=== PATIENT | female | born 1990 | race Two or more races ===

== ENCOUNTER → 2021-12-01 | Outpatient (CLI) | payer OTHER | END | disposition home or self-care (01) | LOC: LAB 10:30 | PROVIDERS: ATTEND Obstetrics & Gynecology | DX: Z34.80 Encounter for supervision of other normal pregnancy, unspecified trimester (principal) | CPT/HCPCS: 86850; 86870; 86900; 86901 ==

== ENCOUNTER → 2022-02-15 | Outpatient (CLI) | payer OTHER ==
[2022-02-15 07:34] LABS: Basophils # (auto) 0 10 ^3/uL (0-0.2); Basophils % (auto) 0.4 % (0.0-2.0); Eosinophils # (auto) 0.6 10 ^3/uL (0-0.8); Hematocrit 35.8 % (36.0-46.0); Hemoglobin 11.6 g/dL (12.2-16.2); Lymphocytes % (auto) 19.9 % (10.0-50.0); Mean Corpuscular Hemoglobin 27.9 pg (28.0-32.0); Mean Corpuscular Hgb Conc. 32.4 g/dL (32.0-36.0); Mean Corpuscular Volume 86.2 fL (80.0-100.0); Monocytes # (auto) 0.7 10 ^3/uL (0-1.3); Neutrophils # (auto) 6.6 10 ^3/uL (1.6-8.6); Neutrophils % (auto) 66.7 % (37.0-80.0); Red Blood Cells 4.16 10^6/uL (4.0-5.20); Red Cell Distribution Width 13.6 % (11.8-14.3); White Blood Cell 9.9 10^3/uL (4.4-10.8)
== END | disposition home or self-care (01) ==
LOC: LAB 06:58
PROVIDERS: ATTEND Obstetrics & Gynecology
DX: Z34.80 Encounter for supervision of other normal pregnancy, unspecified trimester (principal); O99.810 Abnormal glucose complicating pregnancy
CPT/HCPCS: 36415; 82951; 83036; 85025

== ENCOUNTER 2022-02-25 07:52 | Observation (INO) | payer OTHER ==
[2022-02-25] MEDS ORDERED: PREN-96 PO (13:02)
== END 2022-02-25 13:11 | disposition home or self-care (01) ==
LOC: LDRP 10:57
PROVIDERS: ADMIT Obstetrics & Gynecology; ATTEND Obstetrics & Gynecology
DX: O24.419 Gestational diabetes mellitus in pregnancy, unspecified control (principal); O26.893 Other specified pregnancy related conditions, third trimester; N89.8 Other specified noninflammatory disorders of vagina; Z3A.29 29 weeks gestation of pregnancy
CPT/HCPCS: 59025; 76818; 81002; 82962; G0378

== ENCOUNTER 2022-03-01 07:41 | Observation (INO) | payer OTHER ==
[~2022-03-01 07:41] MED LIST: PREN-96 PO
== END 2022-03-01 14:04 | disposition home or self-care (01) ==
LOC: LDRP 13:00 → UNDOADMOB 13:00 → LDRP 13:22 → UNDODISOB 14:04
PROVIDERS: ADMIT Obstetrics & Gynecology; ATTEND Obstetrics & Gynecology
DX: O24.419 Gestational diabetes mellitus in pregnancy, unspecified control (principal); Z3A.30 30 weeks gestation of pregnancy
CPT/HCPCS: 59025; 76818; 81002; 82948; 82962; 94760; G0378

== ENCOUNTER 2022-03-15 15:00 | Observation (INO) | payer OTHER ==
[~2022-03-15] VITALS: Ht 167.6 cm; Wt 103.4 kg
== END 2022-03-15 16:22 | disposition home or self-care (01) ==
LOC: UNDOADMOB 15:00 → LDRP 15:00 → UNDODISOB 16:22
PROVIDERS: ADMIT Obstetrics & Gynecology; ATTEND Obstetrics & Gynecology
DX: O24.419 Gestational diabetes mellitus in pregnancy, unspecified control (principal); Z3A.32 32 weeks gestation of pregnancy
CPT/HCPCS: 59025; 76818; 81002; 82948; 82962; 94760; G0378

== ENCOUNTER 2022-03-22 16:45 | Observation (INO) | payer OTHER | END 2022-03-25 12:10 | disposition home or self-care (01) | LOC: LDRP 03-25 09:03 → UNDOADMOB 03-25 09:03 → LDRP 03-25 12:00 → UNDODISOB 03-25 12:10 | PROVIDERS: ADMIT Obstetrics & Gynecology; ATTEND Obstetrics & Gynecology | DX: O24.419 Gestational diabetes mellitus in pregnancy, unspecified control (principal); Z3A.33 33 weeks gestation of pregnancy; Z87.891 Personal history of nicotine dependence | CPT/HCPCS: 59025; 76818; 81002; 94760; G0378 ==

== ENCOUNTER 2022-04-01 08:00 | Observation (INO) | payer OTHER | END 2022-04-01 09:22 | disposition home or self-care (01) | LOC: LDRP 08:00 | PROVIDERS: ADMIT Obstetrics & Gynecology; ATTEND Obstetrics & Gynecology | DX: O24.419 Gestational diabetes mellitus in pregnancy, unspecified control (principal); Z3A.34 34 weeks gestation of pregnancy | CPT/HCPCS: 59025; 76818; 81002; 82948; 82962; 94760; G0378 ==

== ENCOUNTER → 2022-04-05 | Outpatient (CLI) | payer OTHER ==
[~2022-04-05] MED LIST changes: +CETI10CA PO; +FLUT250M2 INH
[2022-04-05 09:34] LABS: Basophils # (auto) 0 10 ^3/uL (0-0.2); Eosinophils # (auto) 0.2 10 ^3/uL (0-0.8); Neutrophils # (auto) 4.7 10 ^3/uL (1.6-8.6); White Blood Cell 7.6 10^3/uL (4.4-10.8)
[2022-04-05 09:36] LABS: Basophils % (auto) 0.5 % (0.0-2.0); Eosinophils % (auto) 3.3 % (0.0-7.0); Hematocrit 36.8 % (36.0-46.0); Hemoglobin 11.4 g/dL (12.2-16.2); Lymphocytes # (auto) 1.9 10 ^3/uL (0.4-5.4); Lymphocytes % (auto) 25.3 % (10.0-50.0); Mean Corpuscular Hemoglobin 25.8 pg (28.0-32.0); Mean Corpuscular Volume 83.1 fL (80.0-100.0); Monocytes # (auto) 0.7 10 ^3/uL (0-1.3); Monocytes % (auto) 9.2 % (0.0-12.0); Neutrophils % (auto) 61.7 % (37.0-80.0); Red Blood Cells 4.43 10^6/uL (4.0-5.20); Red Cell Distribution Width 13.1 % (11.8-14.3)
[2022-04-05 09:57] LABS: Alcohol, Urine < 3.0 mg/dL (0-10); Amphetamine Screen, Urine NEGATIVE (NEGATIVE); Barbiturate Scree,Urine NEGATIVE (NEGATIVE); Benzodiazephine Screen, Urine NEGATIVE (NEGATIVE); Cannabinoid Screen, Urine NEGATIVE (NEGATIVE); Cocaine Screen, Urine NEGATIVE (NEGATIVE); Opiate Scree,Urine NEGATIVE (NEGATIVE); Phencyclidine Screen, Urine NEGATIVE (NEGATIVE)
[2022-04-06 06:15] LABS: RPR Non Reactive (Non Reactive)
== END | disposition home or self-care (01) ==
LOC: LAB 09:04
PROVIDERS: ATTEND Obstetrics & Gynecology
DX: Z34.80 Encounter for supervision of other normal pregnancy, unspecified trimester (principal); Z3A.00 Weeks of gestation of pregnancy not specified; Z11.3 Encounter for screening for infections with a predominantly sexual mode of transmission; Z72.51 High risk heterosexual behavior
CPT/HCPCS: 36415; 80307; 84112; 85025; 86592; 87340

== ENCOUNTER 2022-04-08 08:17 | Observation (INO) | payer OTHER ==
[~2022-04-08 08:17] MED LIST changes: -CETI10CA PO; -FLUT250M2 INH
[2022-04-08] MEDS ORDERED: FLUT250M2 INH (09:05)
== END 2022-04-08 09:33 | disposition home or self-care (01) ==
LOC: LDRP 08:17 → UNDOADMOB 08:17 → LDRP 08:31 → UNDODISOB 09:33
PROVIDERS: ADMIT Obstetrics & Gynecology; ATTEND Obstetrics & Gynecology
DX: O24.419 Gestational diabetes mellitus in pregnancy, unspecified control (principal); O26.893 Other specified pregnancy related conditions, third trimester; N89.8 Other specified noninflammatory disorders of vagina; Z3A.35 35 weeks gestation of pregnancy
CPT/HCPCS: 59025; 76818; 81002; 82948; 82962; 94760; G0378

== ENCOUNTER 2022-04-15 08:56 | Observation (INO) | payer OTHER ==
[~2022-04-15 08:56] MED LIST changes: +FLUT250M2 INH
== END 2022-04-15 11:04 | disposition home or self-care (01) ==
LOC: LDRP 08:56
PROVIDERS: ADMIT Obstetrics & Gynecology; ATTEND Obstetrics & Gynecology
DX: O24.419 Gestational diabetes mellitus in pregnancy, unspecified control (principal); Z3A.36 36 weeks gestation of pregnancy; Z79.899 Other long term (current) drug therapy
CPT/HCPCS: 59025; 76818; 81002; 82948; 82962; G0378

== ENCOUNTER 2022-04-20 07:44 | Observation (INO) | payer OTHER | END 2022-04-22 10:50 | disposition home or self-care (01) | LOC: LDRP 04-22 08:58 → UNDOADMOB 04-22 08:58 → LDRP 04-22 09:02 → UNDODISOB 04-22 10:50 | PROVIDERS: ADMIT Obstetrics & Gynecology; ATTEND Obstetrics & Gynecology | DX: O24.419 Gestational diabetes mellitus in pregnancy, unspecified control (principal); Z3A.37 37 weeks gestation of pregnancy | CPT/HCPCS: 59025; 76818; 81002; 82948; 82962; 94760; G0378 ==

== ENCOUNTER 2022-04-29 10:02 | Observation (INO) | payer OTHER ==
[2022-04-29] MEDS ORDERED: CETI10CA PO (10:56)
== END 2022-04-29 11:25 | disposition home or self-care (01) ==
LOC: UNDOADMOB 10:02 → LDRP 10:02
PROVIDERS: ADMIT Obstetrics & Gynecology; ATTEND Obstetrics & Gynecology
DX: O24.419 Gestational diabetes mellitus in pregnancy, unspecified control (principal); Z3A.38 38 weeks gestation of pregnancy
CPT/HCPCS: 59025; 76818; 81002; 82948; 82962; G0378

== ENCOUNTER 2022-05-03 10:13 | Observation (INO) | payer OTHER ==
[~2022-05-03 10:13] MED LIST changes: +CETI10CA PO
== END 2022-05-03 12:41 | disposition home or self-care (01) ==
LOC: LDRP 10:13 → UNDOADMOB 10:13 → LDRP 10:17 → UNDODISOB 12:41
PROVIDERS: ADMIT Obstetrics & Gynecology; ATTEND Obstetrics & Gynecology
DX: O24.419 Gestational diabetes mellitus in pregnancy, unspecified control (principal); O13.3 Gestational [pregnancy-induced] hypertension without significant proteinuria, third trimester; O36.1930 Maternal care for other isoimmunization, third trimester, not applicable or unspecified; O62.9 Abnormality of forces of labor, unspecified; O99.891 Other specified diseases and conditions complicating pregnancy; M54.9 Dorsalgia, unspecified; Z3A.39 39 weeks gestation of pregnancy
CPT/HCPCS: 59025; 76818; 81002; 82948; 82962; 94760; G0378

== ENCOUNTER 2022-05-06 13:00 | Inpatient (IN) | payer OTHER ==
[~2022-05-06] VITALS: Ht 167.6 cm; Wt 103.0 kg
[2022-05-06] MEDS ORDERED: WITCH HAZEL-GLYCERIN PAD TOP PRN (13:30)
[2022-05-06] MEDS ORDERED: PHISODERM TOP SOLN 240ML BTL TOP PRN (13:30)
[2022-05-06] MEDS ORDERED: DERMOPLAST 60ML BOTTLE TOP PRN (13:30)
[2022-05-06] MEDS ORDERED: PROMETHAZINE HCL 25 MG/ML 1ML IV PRN (13:30)
[2022-05-06] MEDS ORDERED: PENICILLIN G POT 5MIL/D5 50ML 50 ML IV ONE (13:30)
[2022-05-06] MEDS ORDERED: BUTORPHANOL TARTRATE 2 MG/1 ML VIAL IV PRN ×2 (13:30)
[2022-05-06] MEDS ORDERED: LIDOCAINE 2%HCL (LOCAL ANESTH.) INJ 10ml MDV IJ PRN (13:30)
[2022-05-06] MEDS ORDERED: ACCU-CHEK COMFORT CURVE STRIP VI SCH (14:00)
[2022-05-06 14:45] LABS: Eosinophils % (auto) 1.9 % (0.0-7.0); Hemoglobin 11.1 g/dL (12.2-16.2); Red Cell Distribution Width 14.1 % (11.8-14.3)
[2022-05-06 14:51] LABS: Basophils # (auto) 0.1 10 ^3/uL (0-0.2); Basophils % (auto) 0.7 % (0.0-2.0); Eosinophils # (auto) 0.1 10 ^3/uL (0-0.8); Hematocrit 34.1 % (36.0-46.0); Lymphocytes # (auto) 1.6 10 ^3/uL (0.4-5.4); Lymphocytes % (auto) 19.7 % (10.0-50.0); Mean Corpuscular Hemoglobin 26.2 pg (28.0-32.0); Mean Corpuscular Hgb Conc. 32.6 g/dL (32.0-36.0); Mean Corpuscular Volume 80.3 fL (80.0-100.0); Monocytes # (auto) 0.5 10 ^3/uL (0-1.3); Monocytes % (auto) 6.7 % (0.0-12.0); Neutrophils # (auto) 5.7 10 ^3/uL (1.6-8.6); Red Blood Cells 4.25 10^6/uL (4.0-5.20)
[2022-05-06 15:00] LABS: INR 0.92 (0.9-1.15); Partial Thromboplastin Time 25.4 sec (24.6-33.4)
[2022-05-06 15:05] LABS: Albumin 2.3 g/dL (3.4-5.0); Calcium 8.2 mg/dL (8.5-10.1); Potassium 3.7 mmol/L (3.5-5.1)
[2022-05-06 15:08] LABS: BUN/Creatinine Ratio 9.5; Bilirubin, Total 0.3 mg/dL (0.2-1.0)
[2022-05-06] MEDS: miSOPROStol 50 MCG per PRE-CUT 1/2 TAB PO PRN ×2 (16:12→21:01)
[2022-05-06] MEDS: LACTATED RINGER'S 1,000 ML IV SCH ×2 (16:17→22:20)
[2022-05-06] MEDS ORDERED: PENICILLIN G POTASSIUM 2,500,000 UNITS in D5W 5% 50 ML IV SCH (17:30)
[2022-05-06 17:34] LABS: Alcohol, Urine < 3.0 mg/dL (0-10); Amphetamine Screen, Urine NEGATIVE (NEGATIVE); Barbiturate Scree,Urine NEGATIVE (NEGATIVE); Benzodiazephine Screen, Urine NEGATIVE (NEGATIVE); Cannabinoid Screen, Urine NEGATIVE (NEGATIVE); Cocaine Screen, Urine NEGATIVE (NEGATIVE); Opiate Scree,Urine NEGATIVE (NEGATIVE); Phencyclidine Screen, Urine NEGATIVE (NEGATIVE)
[2022-05-06] MEDS: PENICILLIN G POTASSIUM 2,500,000 UNITS in D5W 5% 50 ML IV SCH (20:30)
[2022-05-06 22:08] LABS: Urine Bacteria MOD /hpf (None Seen); Urine Blood Negative /uL (Negative); Urine Specific Gravity 1.003 (1.001-1.035); Urine WBC 1 /hpf (0 - 5)
[2022-05-07] MEDS: PENICILLIN G POTASSIUM 2,500,000 UNITS in D5W 5% 50 ML IV SCH ×5 (00:59→17:34)
[2022-05-07] MEDS: miSOPROStol 50 MCG per PRE-CUT 1/2 TAB PO PRN ×2 (01:00→05:46)
[2022-05-07 07:06] LABS: RPR Non Reactive (Non Reactive)
[2022-05-07] MEDS: LACTATED RINGER'S 1,000 ML IV SCH ×2 (08:14→14:45)
[2022-05-07] MEDS ORDERED: ePHEDrine SULFATE 50 MG/ML AMP IV ONE (12:00)
[2022-05-07] MEDS ORDERED: LIDOCAINE HCL 2 %PF INJ 10ML AMP IJ ONE ×2 (12:00→12:18)
[2022-05-07] MEDS ORDERED: ROPIVACAINE HCL 200 ML EPI SCH (12:00)
[2022-05-07] MEDS ORDERED: LACTATED RINGER'S 1,000 ML IV ONE (12:00)
[2022-05-07] MEDS ORDERED: LACT. RINGERS/OXYTOCIN 20UNITS 500 ML IV ONE ×2 (14:45→15:15)
[2022-05-07] MEDS ORDERED: LACT. RINGERS/OXYTOCIN 20UNITS 1,000 ML IV SCH (14:45)
[2022-05-07] MEDS ORDERED: LIDOCAINE 2%HCL (LOCAL ANESTH.) INJ 20ML MDV ONE (23:43)
[2022-05-08] MEDS ORDERED: LACT. RINGERS/OXYTOCIN 20UNITS 500 ML IV ONE ×2 (00:15→00:45)
[2022-05-08] MEDS ORDERED: ALPRAZolam 0.5 MG TAB PO ONE (00:45)
[2022-05-08] MEDS ORDERED: IBUPROFEN 800 MG TAB PO PRN (00:45)
[2022-05-08] MEDS ORDERED: ACETAMINOPHEN 325 MG TAB PO PRN (00:45)
[2022-05-08] MEDS ORDERED: HYDROcodone-ACET 5/325MG TAB PO PRN (00:45)
[2022-05-08 03:00] VITALS: BP 117/54
[2022-05-08 07:00] VITALS: BP 115/60
[2022-05-08 11:00] VITALS: BP 112/54
[2022-05-08] MEDS: IBUPROFEN 600 MG TAB PO PRN (14:57)
[2022-05-08 15:00] VITALS: BP 109/60
[2022-05-08 19:29] VITALS: BP 105/55
[2022-05-08 23:14] VITALS: BP 111/55
[2022-05-09 03:15] VITALS: BP 113/58
[2022-05-09] MEDS: IBUPROFEN 600 MG TAB PO PRN (03:26)
[2022-05-09 07:00] VITALS: BP 99/50
[2022-05-09 11:00] VITALS: BP 115/58
== END 2022-05-09 11:32 | disposition home or self-care (01) | DRG 807 ==
LOC: LDRP 13:00
PROVIDERS: ADMIT Obstetrics & Gynecology; ATTEND Obstetrics & Gynecology
PROC: 3E0P7VZ Introduction of Hormone into Female Reproductive, Via Natural or Artificial Opening (ICD-10-PCS; 2022-05-06)
PROC: 10E0XZZ Delivery of Products of Conception, External Approach (ICD-10-PCS; principal; 2022-05-07)
PROC: 3E0R3BZ Introduction of Anesthetic Agent into Spinal Canal, Percutaneous Approach (ICD-10-PCS; 2022-05-07)
PROC: 00HU33Z Insertion of Infusion Device into Spinal Canal, Percutaneous Approach (ICD-10-PCS; 2022-05-07)
PROC: 0HQ9XZZ Repair Perineum Skin, External Approach (ICD-10-PCS; 2022-05-07)
DX: O24.429 Gestational diabetes mellitus in childbirth, unspecified control (principal); Z37.0 Single live birth; Z3A.39 39 weeks gestation of pregnancy; O70.0 First degree perineal laceration during delivery; O99.52 Diseases of the respiratory system complicating childbirth; J45.909 Unspecified asthma, uncomplicated; Z20.822 Contact with and (suspected) exposure to COVID-19
CPT/HCPCS: 36415; 59025; 59409; 62282; 80053; 80307; 81001; 81002; 82948; 82962; 85025; 85610; 85730; 86592; 86850; 86870; 86900; 86901; 94760; 94762; 96360; 96361; 96365; 96366; G0378; J2540; J2590; J7060

== ENCOUNTER → 2024-03-25 | Outpatient (CLI) | payer OTHER ==
[2024-03-25 09:36] LABS: Monocytes # (auto) 0.5 10 ^3/uL (0-1.3)
[2024-03-25 09:39] LABS: Basophils # (auto) 0 10 ^3/uL (0-0.2); Basophils % (auto) 0.7 % (0.0-2.0); Eosinophils # (auto) 0.3 10 ^3/uL (0-0.8); Eosinophils % (auto) 3.6 % (0.0-7.0); Hematocrit 37.9 % (36.0-46.0); Hemoglobin 12.5 g/dL (12.2-16.2); Lymphocytes # (auto) 1.5 10 ^3/uL (0.4-5.4); Lymphocytes % (auto) 21.6 % (10.0-50.0); Mean Corpuscular Hemoglobin 26.8 pg (28.0-32.0); Mean Corpuscular Hgb Conc. 32.9 g/dL (32.0-36.0); Mean Corpuscular Volume 81.3 fL (80.0-100.0); Monocytes % (auto) 6.6 % (0.0-12.0); Neutrophils # (auto) 4.8 10 ^3/uL (1.6-8.6); Neutrophils % (auto) 67.5 % (37.0-80.0); Red Blood Cells 4.66 10^6/uL (4.0-5.20); White Blood Cell 7.1 10^3/uL (4.4-10.8)
[2024-03-25 10:44] LABS: Amphetamine Screen, Urine Neg (NEGATIVE); Barbiturate Scree,Urine Neg (NEGATIVE); Benzodiazephine Screen, Urine Neg (NEGATIVE); Cocaine Screen, Urine Neg (NEGATIVE); Opiate Scree,Urine Neg (NEGATIVE)
[2024-03-25 10:45] LABS: Cannabinoid Screen, Urine Neg (NEGATIVE); Phencyclidine Screen, Urine Neg (NEGATIVE)
[2024-03-25 10:50] LABS: Alanine Aminotransferase 18 U/L (7-40); Alkaline Phosphatase 56 U/L (46-116); Anion Gap 8 (5-15); BUN/Creatinine Ratio 11.1 (10.0-20.0); Blood Urea Nitrogen 6 mg/dL (9-23); Calcium 8.9 mg/dL (8.7-10.4); Carbon Dioxide 24 mmol/L (20-30); Chloride 106 mmol/L (98-107); Glucose 78 mg/dL (74-106); LDL Cholesterol 62 mg/dL (< 100); Potassium 3.7 mmol/L (3.5-5.1); Sodium 138 mmol/L (136-145); Triglycerides 69 mg/dL (< 150)
[2024-03-25 10:51] LABS: Aspartate Aminotransferase 10 U/L (13-40); Bilirubin, Total 0.5 mg/dL (0.2-1.0); Cholesterol 140 mg/dL (< 200); HDL Cholesterol 70 mg/dL (40-59); Total Protein 6.3 g/dL (5.7-8.2)
[2024-03-25 10:53] LABS: Thyroid Stimulating Hormone 1.85 uIU/mL (0.55-4.78)
[2024-03-25 11:01] LABS: Beta HCG, Quantitative 62417.9 mIU/mL (1.5-4.2)
== END | disposition home or self-care (01) ==
LOC: LAB 09:01
PROVIDERS: ATTEND Obstetrics & Gynecology
DX: Z36.0 Encounter for antenatal screening for chromosomal anomalies (principal); Z11.3 Encounter for screening for infections with a predominantly sexual mode of transmission; Z34.00 Encounter for supervision of normal first pregnancy, unspecified trimester; O23.40 Unspecified infection of urinary tract in pregnancy, unspecified trimester; N39.0 Urinary tract infection, site not specified; Z3A.00 Weeks of gestation of pregnancy not specified
CPT/HCPCS: 36415; 80053; 80061; 80307; 83036; 84439; 84443; 84702; 85025; 86703; 86762; 86787; 86850; 86870; 86900; 86901; 87086; 87340; 87902

== ENCOUNTER 2024-06-04 05:27 | Emergency (ER) | payer BC ==
[~2024-06-04] VITALS: Ht 167.6 cm; Wt 104.6 kg
[2024-06-04 06:40] VITALS: BP 122/64; PULSE 80; RESP 18; TEMP 98.3; O2SAT 98
[2024-06-04] MEDS ORDERED: FLUO0.054 TOP (07:06)
== END 2024-06-04 07:12 | disposition home or self-care (01) ==
LOC: ER 05:27
DX: L30.9 Dermatitis, unspecified (principal); Z79.899 Other long term (current) drug therapy

== ENCOUNTER 2024-06-26 09:51 | Observation (INO) | payer BC ==
[~2024-06-26 09:51] MED LIST changes: +FLUO0.054 TOP
== END 2024-06-26 12:22 | disposition home or self-care (01) ==
LOC: LDRP 09:51 → UNDOADMOB 09:51 → LDRP 10:03 → UNDODISOB 12:22
PROVIDERS: ADMIT Obstetrics & Gynecology; ATTEND Obstetrics & Gynecology
DX: O26.892 Other specified pregnancy related conditions, second trimester (principal); R10.30 Lower abdominal pain, unspecified; Z3A.24 24 weeks gestation of pregnancy; Z87.891 Personal history of nicotine dependence
CPT/HCPCS: 59025; 76815; 81002; 94760; G0378

== ENCOUNTER → 2024-08-13 | Outpatient (CLI) | payer BC | END | disposition home or self-care (01) | LOC: LAB 10:18 | DX: O36.0130 Maternal care for anti-D [Rh] antibodies, third trimester, not applicable or unspecified (principal); Z3A.00 Weeks of gestation of pregnancy not specified | CPT/HCPCS: 86850; 86870; 86900; 86901 ==

== ENCOUNTER 2024-08-26 08:05 | Observation (INO) | payer BC ==
--- NOTE | 2024-09-05 08:31 | DVH ---
Procedure: US BIOPHYSICAL PROFILE 09/05/2024 08:02 AM Indication: GDMA2 Comparison: BIOPHYSICAL PROFILE on DOS: 05/03/22, BPP on DOS: 05/03/22, BIOPHYSICAL PROFILE on DOS: 2 Technique: Sonogram of gravid uterus utilizing grayscale and color techniques. FINDINGS: Single living intrauterine gestation. Presentation: Cephalic Placenta: Anterior heart rate: 144 bpm RON: 10.5 cm, DVP: 4.6 cm Maternal cervix: Not visualized Biophysical Profile: breathing score: 2 movement score: 2 tone: 2 Quantitative RON score: 2 Total score: 8/8 IMPRESSION: 1. Single living as above. 2. Biophysical profile score: 8/8.
[2024-09-05] MEDS ORDERED: METF-370 PO (08:40)
[2024-09-05] MEDS ORDERED: GLYB2.5T8 PO (08:40)
--- NOTE | 2024-09-06 16:08 | DVHDS2 ---
Physician Discharge Progress N Final Diagnosis: gdm Operations or Procedures: Operations or Procedures nst,sono Condition on Discharge: Good Disposition: Home Discharge Instructions: Diet: Consistent carbohydrate Activity: No Restrictions, As Tolerated Medications: na Follow Up Care: Specialist: 3d Discharge Statement: "Patient was advised to return to the ER or call 911 if any headaches, dizziness, shortness of breath, chest pain, abdominal pain, bleeding, fevers, or worsening of medical condition. Patient was counseled about treatment plan, medications, possible side effects, patientverbalized understanding. All questions were answered to the best of my ability. This discharge took greater then 30 minutes in planning, reviewing documentation, counseling the patient, and discussing with other team members." LO GRIGSBY DO Sep 06, 2024 16:08
== END 2024-09-05 08:57 | disposition home or self-care (01) ==
LOC: LDRP 09-05 07:57
PROVIDERS: ADMIT Obstetrics & Gynecology; ATTEND Obstetrics & Gynecology
DX: O24.419 Gestational diabetes mellitus in pregnancy, unspecified control (principal); Z3A.34 34 weeks gestation of pregnancy; Z87.891 Personal history of nicotine dependence; Z79.899 Other long term (current) drug therapy
CPT/HCPCS: 59025; 76818; 81002; 82948; 82962; 94760; G0378

== ENCOUNTER 2024-09-09 09:56 | Observation (INO) | payer BC ==
[~2024-09-09 09:56] MED LIST changes: +GLYB2.5T8 PO; +METF-370 PO
--- NOTE | 2024-09-09 11:13 | DVH ---
BIOPHYSICAL PROFILE HISTORY: GDMA2 TECHNIQUE: Multiple transabdominal real-time grayscale sonographic images through the gravid uterus of the fetus with duplex Doppler color flow and M-mode spectral analysis FINDINGS: BIOPHYSICAL PROFILE: breathing score: 2 movement score: 2 tone score: 2 Quantitative RON score: 2 (RON: 12.5 Cm.) The fetus is in cephalic position. Placenta is anterior. IMPRESSION: 1. Biophysical profile score: 8/8
--- NOTE | 2024-09-09 11:43 | DVHDS2 ---
Physician Discharge Progress N Final Diagnosis: GDMA2 Secondary Diagnosis: Encounter for surveillance Operations or Procedures: Operations or Procedures NST/BPP/RON Accucheck ALL WNL Commentary: Commentary PATIENT: ERNESTO HERRERA ACCT: [id number] UNIT: [id number] : 1990 LOC: [facility] ROOM / BED: [facility] / A AGE / SEX: 34 / F ADM STATUS: ADM IN SERVICE 1037 ORDERING PHYSICIAN: FERN BONILLA DO PROCEDURE(s): BPP - BIOPHYSICAL PROFILE REASON: GDMA2 ORDER NUMBER(s): [id number], ACCESSION NUMBER(s): [id number] BIOPHYSICAL PROFILE HISTORY: GDMA2 TECHNIQUE: Multiple transabdominal real-time grayscale sonographic images through the gravid uterus of the fetus with duplex Doppler color flow and M-mode spectral analysis FINDINGS: BIOPHYSICAL PROFILE: breathing score: 2 movement score: 2 tone score: 2 Quantitative RON score: 2 (RON: 12.5 Cm.) The fetus is in cephalic position. Placenta is anterior. IMPRESSION: 1. Biophysical profile score: 8/8 Condition on Discharge: Stable Disposition: Home Discharge Instructions: Diet: Regular Activity: No Restrictions, As Tolerated Follow Up/Referral: [facility] Monday at 10:00am for NST/BPP Medications: N/A Follow Up Care: Discharge Statement: "Patient was advised to return to the ER or call 911 if any headaches, dizziness, shortness of breath, chest pain, abdominal pain, bleeding, fevers, or worsening of medical condition. Patient was counseled about treatment plan, medications, possible side effects, patientverbalized understanding. All questions were answered to the best of my ability. This discharge took greater then 30 minutes in planning, reviewing documentation, counseling the patient, and discussing with other team members." FERN BONILLA DO Sep 09, 2024 11:43
== END 2024-09-09 11:43 | disposition home or self-care (01) ==
LOC: LDRP 09:56 → UNDOADMOB 09:56 → LDRP 10:39 → UNDODISOB 11:43
PROVIDERS: ADMIT Obstetrics & Gynecology; ATTEND Obstetrics & Gynecology
DX: O24.419 Gestational diabetes mellitus in pregnancy, unspecified control (principal); Z3A.34 34 weeks gestation of pregnancy; Z79.899 Other long term (current) drug therapy; Z98.890 Other specified postprocedural states
CPT/HCPCS: 59025; 76818; 81002; 82948; 82962; 94760; G0378

== ENCOUNTER 2024-09-11 09:33 | Observation (INO) | payer BC ==
[~2024-09-11] VITALS: Ht 167.6 cm; Wt 111.1 kg
--- NOTE | 2024-09-11 10:58 | DVH ---
BIOPHYSICAL PROFILE HISTORY: GDMA2 TECHNIQUE: Multiple transabdominal real-time grayscale sonographic images through the gravid uterus of the fetus with duplex Doppler color flow and M-mode spectral analysis FINDINGS: BIOPHYSICAL PROFILE: breathing score: 2 movement score: 2 tone score: 2 Quantitative RON score: 2 (RON: 12.2 Cm.) Total score: 8/8 The cervix is not visualized. Single live fetus in breech presentation. heart rate 147 beats per minute. Grade 1 anterior placenta without previa or abruption IMPRESSION: 1. Biophysical profile score: 8/8
--- NOTE | 2024-09-11 15:02 | DVHDS2 ---
Physician Discharge Progress N Final Diagnosis: gdm Operations or Procedures: Operations or Procedures nst,sono Condition on Discharge: Good Disposition: Home Discharge Instructions: Diet: Consistent carbohydrate Activity: Light activity Medications: na Follow Up Care: Specialist: 3d Discharge Statement: "Patient was advised to return to the ER or call 911 if any headaches, dizziness, shortness of breath, chest pain, abdominal pain, bleeding, fevers, or worsening of medical condition. Patient was counseled about treatment plan, medications, possible side effects, patientverbalized understanding. All questions were answered to the best of my ability. This discharge took greater then 30 minutes in planning, reviewing documentation, counseling the patient, and discussing with other team members." LO GRIGSBY DO Sep 11, 2024 15:02
== END 2024-09-11 10:56 | disposition home or self-care (01) ==
LOC: LDRP 09:33
PROVIDERS: ADMIT Obstetrics & Gynecology; ATTEND Obstetrics & Gynecology
DX: O24.419 Gestational diabetes mellitus in pregnancy, unspecified control (principal); Z3A.35 35 weeks gestation of pregnancy; Z79.899 Other long term (current) drug therapy
CPT/HCPCS: 59025; 76818; 81002; 82948; 82962; 94760; G0378

== ENCOUNTER 2024-09-18 08:53 | Observation (INO) | payer BC ==
--- NOTE | 2024-09-18 11:02 | DVH ---
BIOPHYSICAL PROFILE HISTORY: GDMA2 TECHNIQUE: Multiple transabdominal real-time grayscale sonographic images through the gravid uterus of the fetus with duplex Doppler color flow and M-mode spectral analysis FINDINGS: BIOPHYSICAL PROFILE: breathing score: 2 movement score: 2 tone score: 2 Quantitative RON score: 2 (RON: 10.6 Cm.) Total score: 8/8 The cervix is not seen. Single live fetus in cephalic presentation. heart rate 132 beats per minute. Grade 1 anterior placenta without previa or abruption Biophysical profile score 8/8 corresponding to an MIGDALIA of 10/15/24 IMPRESSION: Biophysical profile score: 8/8
--- NOTE | 2024-09-18 11:44 | DVHDS2 ---
Physician Discharge Progress N Final Diagnosis: gdm Operations or Procedures: Operations or Procedures nst,sono Condition on Discharge: Good Disposition: Home Discharge Instructions: Diet: Consistent carbohydrate Activity: No Restrictions, As Tolerated Medications: na Follow Up Care: Specialist: 3d Discharge Statement: "Patient was advised to return to the ER or call 911 if any headaches, dizziness, shortness of breath, chest pain, abdominal pain, bleeding, fevers, or worsening of medical condition. Patient was counseled about treatment plan, medications, possible side effects, patientverbalized understanding. All questions were answered to the best of my ability. This discharge took greater then 30 minutes in planning, reviewing documentation, counseling the patient, and discussing with other team members." LO GRIGSBY DO Sep 18, 2024 11:44
== END 2024-09-18 11:22 | disposition home or self-care (01) ==
LOC: LDRP 08:53
PROVIDERS: ADMIT Obstetrics & Gynecology; ATTEND Obstetrics & Gynecology
DX: O24.419 Gestational diabetes mellitus in pregnancy, unspecified control (principal); Z98.890 Other specified postprocedural states; Z79.899 Other long term (current) drug therapy; Z3A.36 36 weeks gestation of pregnancy
CPT/HCPCS: 59025; 76818; 81002; 82948; 82962; 94760; G0378

== ENCOUNTER 2024-09-25 09:05 | Observation (INO) | payer BC ==
--- NOTE | 2024-09-25 09:44 | DVHDS2 ---
Physician Discharge Progress N Final Diagnosis: gdm Operations or Procedures: Operations or Procedures nst,sono Condition on Discharge: Good Disposition: Home Discharge Instructions: Diet: Consistent carbohydrate Activity: No Restrictions, As Tolerated Medications: na Follow Up Care: Specialist: 3d Discharge Statement: "Patient was advised to return to the ER or call 911 if any headaches, dizziness, shortness of breath, chest pain, abdominal pain, bleeding, fevers, or worsening of medical condition. Patient was counseled about treatment plan, medications, possible side effects, patientverbalized understanding. All questions were answered to the best of my ability. This discharge took greater then 30 minutes in planning, reviewing documentation, counseling the patient, and discussing with other team members." LO GRIGSBY DO Sep 25, 2024 09:44
--- NOTE | 2024-09-25 10:46 | DVH ---
Procedure: US BIOPHYSICAL PROFILE 09/25/2024 09:52 AM Indication: GDMA2 Comparison: US BIOPHYSICAL PROFILE on DOS: 09/18/24, US BIOPHYSICAL PROFILE on DOS: 09/11/24, US BIOPHY SICAL PROFILE on DOS: 09/09/24 Technique: Sonogram of gravid uterus utilizing grayscale and color techniques. FINDINGS: Single living intrauterine gestation. Presentation: Cephalic Placenta: Anterior, grade 2 heart rate: 130 bpm RON: 11.9 cm, previously 10.6 cm Maternal cervix: Not visualized Other: The umbilical cord is draped around the neck. Biophysical Profile: breathing score: 2 movement score: 2 tone: 2 Quantitative RON score: 2 Total score: 8/8 IMPRESSION: 1. Single living as above. 2. Biophysical profile score: 8/8.
== END 2024-09-25 11:04 | disposition home or self-care (01) ==
LOC: LDRP 09:05
PROVIDERS: ADMIT Obstetrics & Gynecology; ATTEND Obstetrics & Gynecology
DX: O24.419 Gestational diabetes mellitus in pregnancy, unspecified control (principal); Z3A.37 37 weeks gestation of pregnancy; Z87.891 Personal history of nicotine dependence; Z79.899 Other long term (current) drug therapy
CPT/HCPCS: 59025; 76818; 81002; 82948; 82962; 94760; G0378

== ENCOUNTER 2024-10-03 06:33 | Observation (INO) | payer BC ==
--- NOTE | 2024-10-03 08:54 | DVH ---
Procedure: US BIOPHYSICAL PROFILE 10/03/2024 08:27 AM Indication: GDMA2 Comparison: US BIOPHYSICAL PROFILE on DOS: 09/25/24, US BIOPHYSICAL PROFILE on DOS: 09/18/24, US BIOPHY SICAL PROFILE on DOS: 09/11/24 Technique: Sonogram of gravid uterus utilizing grayscale and color techniques. FINDINGS: Single living intrauterine gestation. Presentation: Cephalic Placenta: Anterior heart rate: 142 bpm RON: 14.3 cm, DVP: 4.7 cm Maternal cervix: Not visualized Other: Possible nuchal cord seen on 09/25/2024 is not visualized in today's exam. Biophysical Profile: breathing score: 2 movement score: 2 tone: 2 Quantitative RON score: 2 Total score: 8/8 IMPRESSION: 1. Single living as above. 2. Biophysical profile score: 8/8.
--- NOTE | 2024-10-04 11:32 | DVHDS2 ---
Physician Discharge Progress N Final Diagnosis: gdm,morbid obesity Operations or Procedures: Operations or Procedures nst,sono 36wks Condition on Discharge: Good Disposition: Home Discharge Instructions: Diet: Regular, Consistent carbohydrate Activity: No Restrictions, As Tolerated Medications: na Follow Up Care: Specialist: 1w Discharge Statement: "Patient was advised to return to the ER or call 911 if any headaches, dizziness, shortness of breath, chest pain, abdominal pain, bleeding, fevers, or worsening of medical condition. Patient was counseled about treatment plan, medications, possible side effects, patientverbalized understanding. All questions were answered to the best of my ability. This discharge took greater then 30 minutes in planning, reviewing documentation, counseling the patient, and discussing with other team members." Visit Coding OBGYN Date of Service: Oct 03, 2024 Billing Provider: LO GRIGSBY DO [employer]S AND SERVICE DIRECTOR Common Visit Codes: 67095-HNM/OBS SAME DATE (HIGH) [employer]S AND SERVICE DIRECTOR Procedure Codes: 09719-97- NON-STRESS TEST LO GRIGSBY DO Oct 04, 2024 11:32
== END 2024-10-03 10:05 | disposition home or self-care (01) ==
LOC: LDRP 07:50
PROVIDERS: ADMIT Obstetrics & Gynecology; ATTEND Obstetrics & Gynecology
DX: O24.419 Gestational diabetes mellitus in pregnancy, unspecified control (principal); O99.213 Obesity complicating pregnancy, third trimester; E66.01 Morbid (severe) obesity due to excess calories; Z3A.38 38 weeks gestation of pregnancy; Z79.899 Other long term (current) drug therapy; Z98.890 Other specified postprocedural states
CPT/HCPCS: 59025; 76818; 81002; 82948; 82962; 94760; G0378

== ENCOUNTER 2024-10-08 07:45 | Observation (INO) | payer BC ==
--- NOTE | 2024-10-08 11:46 | DVH ---
BIOPHYSICAL PROFILE HISTORY: GDMA2 TECHNIQUE: Multiple transabdominal real-time grayscale sonographic images through the gravid uterus of the fetus with duplex Doppler color flow and M-mode spectral analysis FINDINGS: BIOPHYSICAL PROFILE: breathing score: 2 movement score: 2 tone score: 2 Quantitative RON score: 2 (RON: 14.9 Cm.) Total score: 8 The cervix not well visualized. Single live fetus in cephalic presentation. heart rate 159 beats per minute. Anterior placenta without previa or abruption IMPRESSION: Biophysical profile score: 8
--- NOTE | 2024-10-08 20:24 | DVHDS2 ---
Physician Discharge Progress N Final Diagnosis: testing for GDM, A1 Operations or Procedures: Operations or Procedures 34yo IUP@38.6wks, +FM, denies LOF/UCs/VB VSS NST reactive FKC/labor precautions reviewed Dr. Myers consulted, agrees with POC. Other Interventions Other Interventions [address] [address] Ph: [phone] DIAGNOSTIC IMAGING Diagnostic Imaging Report : [id number] Signed PATIENT: ERNESTO HERRERA ACCT: [id number] UNIT: [id number] : 1990 LOC: [facility] ROOM / BED: [facility] / A AGE / SEX: 34 / F ADM STATUS: ADM IN SERVICE 104 ORDERING PHYSICIAN: LYNN BARR CNM PROCEDURE(s): BPP - BIOPHYSICAL PROFILE REASON: GDMA2 ORDER NUMBER(s): [id number], ACCESSION NUMBER(s): [id number] BIOPHYSICAL PROFILE HISTORY: GDMA2 TECHNIQUE: Multiple transabdominal real-time grayscale sonographic images through the gravid uterus of the fetus with duplex Doppler color flow and M-mode spectral analysis FINDINGS: BIOPHYSICAL PROFILE: breathing score: 2 movement score: 2 tone score: 2 Quantitative RON score: 2 (RON: 14.9 Cm.) Total score: 8 The cervix not well visualized. Single live fetus in cephalic presentation. heart rate 159 beats per minute. Anterior placenta without previa or abruption IMPRESSION: Biophysical profile score: 8 ATED BY: JAVIER SEVILLA MD DICTATED DATE/TIME: 10/08/24 1145 SIGNED BY: JAVIER SEVILLA MD SIGNED DATE/TIME: 10/08/24 114 CC: Condition on Discharge: Stable Disposition: Home Discharge Instructions: Diet: Consistent carbohydrate Activity: No Restrictions, As Tolerated Medications: see med list Follow Up Care: Specialist: f/u in 3 days Discharge Statement: "Patient was advised to return to the ER or call 911 if any headaches, dizziness, shortness of breath, chest pain, abdominal pain, bleeding, fevers, or worsening of medical condition. Patient was counseled about treatment plan, medications, possible side effects, patientverbalized understanding. All questions were answered to the best of my ability. This discharge took greater then 30 minutes in planning, reviewing documentation, counseling the patient, and discussing with other team members." Visit Coding OBGYN Date of Service: Oct 08, 2024 Billing Provider: LYNN BARR CNM PUBLICATIONS WRITER Common Visit Codes: [id number] OBS CARE (HIGH) LYNN BARR CNM Oct 08, 2024 20:24
== END 2024-10-08 12:08 | disposition home or self-care (01) ==
LOC: LDRP 10:38 → UNDOADMOB 10:38 → LDRP 10:48 → UNDODISOB 12:08
PROVIDERS: ADMIT Obstetrics & Gynecology; ATTEND Obstetrics & Gynecology
DX: O24.419 Gestational diabetes mellitus in pregnancy, unspecified control (principal); O09.523 Supervision of elderly multigravida, third trimester; Z98.890 Other specified postprocedural states; Z79.899 Other long term (current) drug therapy; Z3A.38 38 weeks gestation of pregnancy
CPT/HCPCS: 59025; 76818; 81002; 82948; 82962; 94760; G0378

== ENCOUNTER 2024-10-15 06:40 | Inpatient (IN) | payer BC ==
[~2024-10-15] VITALS: Ht 167.6 cm; Wt 110.2 kg
[2024-10-15] MEDS ORDERED: TERBUTALINE SULFATE 1 MG/ML 1ML VIAL SC PRN (07:00)
[2024-10-15] MEDS ORDERED: LIDOCAINE 2%HCL (LOCAL ANESTH.) INJ 20ML MDV IJ PRN (07:00)
[2024-10-15] MEDS ORDERED: BUTORPHANOL TARTRATE 2 MG/1 ML VIAL IV PRN ×2 (07:00)
[2024-10-15 07:30] LABS: Urine Bacteria FEW /hpf (None Seen); Urine Blood Negative /uL (Negative); Urine Clarity Turbid (Clear); Urine Color Yellow (Yellow); Urine Protein, UAD Negative (Negative); Urine Specific Gravity 1.014 (1.001-1.035); Urine Squamous Epithelial Cell MOD /hpf (<5); Urine Urobilinogen Normal (Negative); Urine WBC 7 /HPF (0-5); Urine pH 6.5 (5.0-9.0)
[2024-10-15 07:36] LABS: Basophils # (auto) 0 10 ^3/uL (0-0.2); Eosinophils # (auto) 0.3 10 ^3/uL (0-0.8); Monocytes # (auto) 0.6 10 ^3/uL (0-1.3); Neutrophils # (auto) 6.1 10 ^3/uL (1.6-8.6)
[2024-10-15 07:40] LABS: Basophils % (auto) 0.2 % (0.0-2.0); Hematocrit 35.5 % (36.0-46.0); Hemoglobin 11.4 g/dL (12.2-16.2); Lymphocytes % (auto) 22.6 % (10.0-50.0); Mean Corpuscular Hemoglobin 25.3 pg (28.0-32.0); Mean Corpuscular Hgb Conc. 32.1 g/dL (32.0-36.0); Mean Corpuscular Volume 78.7 fL (80.0-100.0); Monocytes % (auto) 6.6 % (0.0-12.0); Neutrophils % (auto) 67.6 % (37.0-80.0); Nucleated Red Blood Cells % 0.1 %; Platelet Count (auto) 272 10^3/uL (140-450); Red Cell Distribution Width 15.6 % (11.8-14.3)
[2024-10-15 07:47] LABS: INR 0.92 (0.9-1.15); Partial Thromboplastin Time < 20.0 SEC (24.5-34.5); Prothrombin Time 9.8 sec (9.3-11.8)
[2024-10-15 07:48] LABS: Albumin 4.1 g/dL (3.2-4.8); Anion Gap 10 (5-15); Aspartate Aminotransferase 28 U/L (13-40); Calcium 9.6 mg/dL (8.7-10.4); Carbon Dioxide 24 mmol/L (20-31); Chloride 104 mmol/L (98-107); Sodium 138 mmol/L (136-145)
[2024-10-15 07:49] LABS: Total Protein 6.3 g/dL (5.7-8.2)
[2024-10-15 08:02] LABS: Alanine Aminotransferase 58 U/L (7-40); Alkaline Phosphatase 181 U/L (46-116); BUN/Creatinine Ratio 7.1 (10.0-20.0); Bilirubin, Total 0.3 mg/dL (0.2-1.0); Blood Urea Nitrogen < 5 mg/dL (9-23); Glucose 136 mg/dL (74-106)
--- NOTE | 2024-10-15 08:17 | DVHHP2 ---
OB CC & HPI Date Date of Admission: Oct 15, 2024 Patient Identification: : 3 Para: 1 EDC: Oct 16, 2024 EGA: 39.6 wks Chief Complaints: Reason for admission: induction of labor Indication for induction: other (GDM, A2) Admission Nurse Assessment Rev: Yes History of Present Complaints 34yo IUP@39.6wks presents for scheduled induction for GDMA2. Pt unaware of contractions, does not feel them. Denies UCs/LOF/VB/LARA/vision changes/RUQ pain. Endorses +FM. PNC: Routine PNC with Dr Myers at [facility] OB, adequate visits, PNC complicated by GDM,A2. GTT elevated, dating based on LMP c/w 8wk sono, GBS negative. OB hx: x1, uncomplicated in 2021 TAB X1 Past Medical History Cardiac: No pertinent Hx Pulmonary: Asthma Central Nervous System: No pertinent Hx GI: No pertinent Hx Hemotology/Oncology: No pertinent Hx Hepatobiliary: No pertinent Hx Psychiatric: No pertinent Hx Musculoskeletal: No pertinent Hx Rheumotologic: No pertinent Hx Infectious Disease: No peritnent Hx ENT: No pertinent Hx Renal/: No pertinent Hx Endocrine: No pertinent Hx Dermatology: Eczema Past Surgical History: No pertinent Hx OB History OB History Care: Good Care Ultrasounds: Normal mid trimester US Obstetrical Complications: Gestational Diabetes Allergies: Coded Allergies: NO KNOWN ALLERGIES (Unverified , 03/15/22) Allergies NKA Home Meds Active Scripts Fluocinonide (Fluocinonide) 0.05 % Oin, 1 APPLIC TOP BID for 7 Days, #60 GRAMS 1 Refill Prov:PRADIP GARCÍA NP 06/04/24 Reported Medications Metformin Hydrochloride (Metformin Hcl) 500 Mg Tab, 500 MG PO HS for 30 Days, MG 09/05/24 Glyburide (Glyburide) 2.5 Mg Tab, 2.5 MG PO HS for 30 Days, MG 09/05/24 Cetirizine Hcl (Zyrtec Allergy) 10 Mg Cap, 10 MG PO, CAP 04/29/22 Fluticasone-Salmeterol (Advair Diskus 250/50) 1 Puff Ih, 1 PUFF INH BID, #3 INHALER 3 Refills 04/08/22 Vit W/ Ferrous Fumara ( One Daily) Daily Tab, 1 TAB PO DAILY, #30 TAB 11 Refills 02/25/22 Home Meds NKA Current Medications Current Medications Medications (Trade) Dose Ordered Sig/Darren Route PRN Reason Start Time Stop Time Status Last Admin Lactated Ringer's 1,000 ml @ 125 mls/hr Q8H IV 10/15/24 07:00 Diagnostic Test (Pha) (Accu-Chek Comfort Curve T) 1 strip Q4HR 10/15/24 08:00 [place] Caroel (Tucks) 1 pad PRN PRN TOP PERINEAL AREA DISCOMFORT 10/15/24 07:00 Sodium Lauryl Sulfate (Phisoderm) 240 ml PRN PRN TOP PERINEAL AREA DISCOMFORT 10/15/24 07:00 Benzocaine (Dermoplast) 1 applic PRN PRN TOP PERINEAL AREA DISCOMFORT 10/15/24 07:00 UNV Butorphanol Tartrate (Stadol Injection) 1 mg Q4HPRN PRN IV MODERATE PAIN (4-6 PAIN SCALE) 10/15/24 07:00 UNV Butorphanol Tartrate (Stadol Injection) 2 mg Q4HPRN PRN IV SEVERE PAIN (7-10 PAIN SCALE) 10/15/24 07:00 UNV Misoprostol (Cytotec) 50 mcg Q4HPRN PRN PO CERVICAL RIPENING 10/15/24 07:00 UNV Lidocaine HCl (Xylocaine) 20 ml ONCE PRN IJ PERINEAL AREA DISCOMFORT 10/15/24 07:00 UNV Oxytocin 1,000 ml @ 6 ml/hr Q24H IV 10/15/24 07:00 UNV Terbutaline Sulfate (Brethine Inj) 0.25 mg ONCE PRN SC Uterine tachysystole 10/15/24 07:00 UNV Albuterol (Ventolin Hfa) 90 mcg TID IN 10/15/24 14:00 UNV Family & Social History Family/Social History Past Family/Social History: Father T2DM, skin cancer Blood Type: B+ Rubella: immune RPR/VDRL: Negative GBS Status: Negative HBsAG: Negative Review of Systems Constitutional: No symptom reported Ears, Nose, & Throat: No symptom reported Eyes: No symptom reported Pulmonary/Respiratory: No symptom reported Cardiovascular: No symptom reported Gastrointestinal: No symptom reported Genitourinary: No symptom reported Musculoskeletal: No symptom reported Skin: No symptom reported Psychiatric: No symptom reported Endocrine: No symptom reported Hemotologic/Lymphatic: No symptom reported OB Admission Exam Physical Exam Vitals: VSS, see chart HEENT: TMs Normal, Fontanelles Normal, Nasal Mucosa Normal, Eyes non-injected, Oropharynx Normal, PERRLA, Moist Membranes, EOMI Heart: Rhythm Normal Lungs: Clear Abdomen: Gravid Extremities: Normal Reflexes: Normal Pelvic Exam: 2/50/-3 Membranes: Intact Heart Rate: 150's Accelerations: Accelerations Present Decelerations: No Decelerations [facility] Variability: Average (6-25) Contractions on Admission: < 5 Minutes Apart Duration: 60 Intensity: Mild OB Plan Plan Admitting Diagnosis: 34yo IUP@39.6wks Induction of Labor for GDM,A2 Category I EFM Intact Membranes GBS negative Plan: Induction Induction Methd: Misoprostol protocol Other Plan: Admit to L&D Informed consent obtained Discussed risks, benefits, alternatives of IOL for GDM,A2 with pt. Pt consents to IOL with cytotec. Discussed potential of starting pitocin with pt. Pt agrees with POC. monitoring per order Routine labs ordered Pain mgmt PRN Frequent position changes in and out of bed encouraged Limit SVE unless necessary Intrauterine resuscitation PRN Anticipate CNM co-managing with Dr. Myers Visit Coding OBGYN Date of Service: Oct 15, 2024 Billing Provider: LYNN BARR CNM FOOD SERVICE STEWARD Common Visit Codes: [id number] OBS CARE (HIGH) LEONIE ALMONTE STUDENTMDW Oct 15, 2024 08:17
[2024-10-15] MEDS ORDERED: ALBUTEROL SULF 2.5 MG/0.5ML(0.5%) NEB SOLN NEB PRN (08:30)
--- NOTE | 2024-10-15 08:39 | DVH ---
LIMITED OB ULTRASOUND > 14 WKS: HISTORY: check presentation for induction TECHNIQUE: Multiple real-time grayscale images of the gravid uterus with duplex Doppler color flow an d M-mode spectral analysis. TRANSDUCER: transabdominal FINDINGS: IUP single live fetus at 37 weeks 3 days based on composite averages of the BPD, head circumference, abdominal circumference and femur length Estimated weight 3228 grams heart rate 157 beats per minute RON 9.5 cm Cervix not well visualized Cephalic Presentation Anterior Placenta without previa or abruption. IMPRESSION: IUP single live fetus at 37 weeks 3 days AUA corresponding to an MIGDALIA of 11/02/24.
[2024-10-15] MEDS: WITCH HAZEL-GLYCERIN PAD TOP PRN (09:22)
[2024-10-15] MEDS: DERMOPLAST 60ML BOTTLE TOP PRN (09:23)
[2024-10-15] MEDS: PHISODERM TOP SOLN 240ML BTL TOP PRN (09:23)
[2024-10-15] MEDS: miSOPROStol 50 MCG per PRE-CUT 1/2 TAB PO PRN (09:25)
[2024-10-15] MEDS: LACTATED RINGER'S 1,000 ML IV SCH (09:32)
[2024-10-15] MEDS: ACCU-CHEK COMFORT CURVE STRIP VI SCH (09:33)
--- NOTE | 2024-10-15 12:46 | DVHPN2 ---
[facility] Labor Progress Note Date and Time Seen Date Seen: Oct 15, 2024 Time Seen: 12:30 Subjective Patient reports: No new complaints Objective Vital Signs VSS, see chart Monitoring Method Monitoring Method: External Heart Rate Heart Rate Baseline: 130 Heart Rate Variability: Moderate Presence of FHR Accelerations: Yes Presence of FHR Decelerations: No Are all 5 Components of the FH: Yes Contractions Contractions Frequency: None Membranes Membranes: Intact Vaginal Exam Vag Exam Deferred: Yes (SVE by RN: 2/50/-3) Medications Medications - Pitocin: No Medications - Pain Medications: prn Medication - Epidural: No Medication - Other Cytotec PO x1 Lab Results Lab Results Vital Signs Date Time Temp Pulse Resp B/P (MAP) Pulse Ox O2 Delivery O2 Flow Rate FiO2 10/15/24 15:19 71 16 98 0.0 21 Current Medications Medications (Trade) Dose Ordered Sig/Darren Start Time Stop Time Status Last Admin Dose Admin Lactated Ringer's 1,000 ml @ 125 mls/hr Q8H 10/15/24 07:00 10/15/24 15:24 125 MLS/HR Diagnostic Test (Pha) (Accu-Chek Comfort Curve T) 1 strip Q4HR 10/15/24 08:00 10/15/24 15:21 1 STRIP Witch Nalini (Tucks) 1 pad PRN PRN 10/15/24 07:00 10/15/24 09:22 1 PAD Sodium Lauryl Sulfate (Phisoderm) 240 ml PRN PRN 10/15/24 07:00 10/15/24 09:23 240 ML Benzocaine (Dermoplast) 1 applic PRN PRN 10/15/24 07:00 10/15/24 09:23 1 APPLIC Butorphanol Tartrate (Stadol Injection) 1 mg Q4HPRN PRN 10/15/24 07:00 Butorphanol Tartrate (Stadol Injection) 2 mg Q4HPRN PRN 10/15/24 07:00 Misoprostol (Cytotec) 50 mcg Q4HPRN PRN 10/15/24 07:00 10/15/24 13:38 50 MCG Lidocaine HCl (Xylocaine) 20 ml ONCE PRN 10/15/24 07:00 Oxytocin 1,000 ml @ 6 ml/hr Q24H 10/15/24 07:00 10/15/24 17:50 3 ML/HR Terbutaline Sulfate (Brethine Inj) 0.25 mg ONCE PRN 10/15/24 07:00 Oxytocin 500 ml @ 999 mls/hr Q31M ONCE 10/15/24 07:00 10/15/24 08:19 DC Oxytocin 500 ml @ 125 mls/hr Q4H ONCE 10/15/24 07:30 10/15/24 11:29 DC Albuterol (Ventolin Medneb) 2.5 mg Q4HP PRN 10/15/24 08:30 Laboratory Tests Test 10/15/24 18:48 10/15/24 07:08 10/15/24 06:50 Range/Units POC Glucose 94 70-106 mg/dl White Blood Count 9.0 4.4-10.8 10^3/uL Red Blood Count 4.50 4.0-5.20 10^6/uL Hemoglobin 11.4 L 12.2-16.2 g/dL Hematocrit 35.5 L 36.0-46.0 % Mean Corpuscular Volume 78.7 L 80.0-100.0 fL Mean Corpuscular Hemoglobin 25.3 L 28.0-32.0 pg Mean Corpuscular Hemoglobin Concent 32.1 32.0-36.0 g/dL Red Cell Distribution Width 15.6 H 11.8-14.3 % Platelet Count 272 140-450 10^3/uL Mean Platelet Volume 8.9 6.9-10.8 fL Neutrophils (%) (Auto) 67.6 37.0-80.0 % Lymphocytes (%) (Auto) 22.6 10.0-50.0 % Monocytes (%) (Auto) 6.6 0.0-12.0 % Eosinophils (%) (Auto) 3.0 0.0-7.0 % Basophils (%) (Auto) 0.2 0.0-2.0 % Neutrophils # (Auto) 6.1 1.6-8.6 10 ^3/uL Lymphocytes # (Auto) 2.0 0.4-5.4 10 ^3/uL Monocytes # (Auto) 0.6 0-1.3 10 ^3/uL Eosinophils # (Auto) 0.3 0-0.8 10 ^3/uL Basophils # (Auto) 0 0-0.2 10 ^3/uL Nucleated Red Blood Cells 0.1 % Prothrombin Time 9.8 9.3-11.8 sec Prothrombin Time INR 0.92 0.9-1.15 Activated Partial Thromboplast Time < 20.0 L 24.5-34.5 SEC Sodium Level 138 136-145 mmol/L Potassium Level 4.0 3.5-5.1 mmol/L Chloride Level 104 98-107 mmol/L Carbon Dioxide Level 24 20-31 mmol/L Anion Gap 10 5-15 Blood Urea Nitrogen < 5 L 9-23 mg/dL Creatinine 0.70 0.550-1.02 mg/dL Glomerular Filtration Rate Calc 115 >90 mL/min BUN/Creatinine Ratio 7.1 L 10.0-20.0 Serum Glucose 136 H 74-106 mg/dL Calcium Level 9.6 8.7-10.4 mg/dL Total Bilirubin 0.3 0.2-1.0 mg/dL Aspartate Amino Transferase (AST) 28 13-40 U/L Alanine Aminotransferase (ALT) 58 H 7-40 U/L Alkaline Phosphatase 181 H 46-116 U/L Total Protein 6.3 5.7-8.2 g/dL Albumin 4.1 3.2-4.8 g/dL Rapid Plasma Reagin Pending Treponema pallidum Ab (TP-PA) Pending Hepatitis C Antibody Negative Negative Urine Color Yellow Yellow Urine Clarity Turbid H Clear Urine pH 6.5 5.0-9.0 Urine Specific [place] 1.014 1.001-1.035 Urine Protein Negative Negative Urine Ketones Negative Negative Urine Blood Negative Negative /uL Urine Nitrite Negative Negative Urine Bilirubin Negative Negative Urine Urobilinogen Normal Negative mg/dL Urine Leukocyte Esterase 3+ Negative /uL Urine RBC 5 0 - 4 /hpf Urine Microscopic WBC 7 H 0-5 /HPF Urine Squamous Epithelial Cells Mod <5 /hpf Urine Bacteria Few H None Seen /hpf Urine Glucose Normal Normal mg/dL Urine Opiates Screen Neg NEGATIVE Urine Fentanyl Screen Neg NEGATIVE Urine Barbiturates Screen Neg NEGATIVE Urine Phencyclidine Screen Neg NEGATIVE Urine Amphetamines Screen Neg NEGATIVE Urine Benzodiazepines Screen Neg NEGATIVE Urine Cocaine Screen Neg NEGATIVE Urine Cannabinoids Screen Neg NEGATIVE Assessment Assessment 34yo IUP@39.6wks Induction of Labor for GDM,A2 Category I EFM Intact Membranes GBS negative Plan Plan Continue with PO Cytotec monitoring per order Pain mgmt PRN Frequent position changes in and out of bed encouraged Limit SVE unless necessary Intrauterine resuscitation PRN Anticipate CNM co-managing with Dr. Myers Plan discussed with: Patient, Other (family) Visit Coding OBGYN Date of Service: Oct 15, 2024 Billing Provider: LYNN BARR CNM FENCE INSTALLER HELPER Common Visit Codes: [id number] INP/OBS CARE(HIGH) LEONIE ALMONTE STUDENTMDW Oct 15, 2024 12:46
[2024-10-15] MEDS ORDERED: ALBUTEROL SULF HFA 90MCG INH 200DOSE IN SCH (14:00)
[2024-10-15 15:19] VITALS: PULSE 71; RESP 16; O2SAT 98
[2024-10-15 16:17] LABS: Amphetamine Screen, Urine Neg (NEGATIVE)
[2024-10-15 16:18] LABS: Benzodiazephine Screen, Urine Neg (NEGATIVE)
[2024-10-15 16:20] LABS: Barbiturate Scree,Urine Neg (NEGATIVE); Cocaine Screen, Urine Neg (NEGATIVE); Opiate Scree,Urine Neg (NEGATIVE); Phencyclidine Screen, Urine Neg (NEGATIVE)
[2024-10-15 16:23] LABS: Cannabinoid Screen, Urine Neg (NEGATIVE)
[2024-10-15] MEDS: LACT. RINGERS/OXYTOCIN 20UNITS 1,000 ML IV SCH (17:50)
--- NOTE | 2024-10-15 19:04 | DVHPN2 ---
[facility] Labor Progress Note Date and Time Seen Date Seen: Oct 15, 2024 Time Seen: 17:30 Subjective Patient reports: No new complaints Objective Vital Signs VSS, see chart Monitoring Method Monitoring Method: External Heart Rate Heart Rate Baseline: 140 Heart Rate Variability: Moderate Presence of FHR Accelerations: Yes Presence of FHR Decelerations: No Are all 5 Components of the FH: Yes Contractions Contractions Frequency: Other (q2-3 min) Duration of Contraction: 50 Contractions Intensity: Mild Contractions Resting Tone: Relaxed Membranes Membranes: Intact Vaginal Exam Vag Exam Deferred: No (Done by RN) Vaginal Exam Dilation: 3 Vaginal Exam Effacement: 50 Vaginal Exam Station: -3 Vaginal Exam Presentation: VTX Vaginal Exam Show: None Medications Medications - Pitocin: No Medications - Pain Medications: PRN Medication - Epidural: No Medication - Other Cytotec PO x2 given Lab Results Lab Results Vital Signs Date Time Temp Pulse Resp B/P (MAP) Pulse Ox O2 Delivery O2 Flow Rate FiO2 10/15/24 15:19 71 16 98 0.0 21 Current Medications Medications (Trade) Dose Ordered Sig/Darren Start Time Stop Time Status Last Admin Dose Admin Lactated Ringer's 1,000 ml @ 125 mls/hr Q8H 10/15/24 07:00 10/15/24 15:24 125 MLS/HR Diagnostic Test (Pha) (Accu-Chek Comfort Curve T) 1 strip Q4HR 10/15/24 08:00 10/15/24 15:21 1 STRIP Witch Nalini (Tucks) 1 pad PRN PRN 10/15/24 07:00 10/15/24 09:22 1 PAD Sodium Lauryl Sulfate (Phisoderm) 240 ml PRN PRN 10/15/24 07:00 10/15/24 09:23 240 ML Benzocaine (Dermoplast) 1 applic PRN PRN 10/15/24 07:00 10/15/24 09:23 1 APPLIC Butorphanol Tartrate (Stadol Injection) 1 mg Q4HPRN PRN 10/15/24 07:00 Butorphanol Tartrate (Stadol Injection) 2 mg Q4HPRN PRN 10/15/24 07:00 Misoprostol (Cytotec) 50 mcg Q4HPRN PRN 10/15/24 07:00 10/15/24 13:38 50 MCG Lidocaine HCl (Xylocaine) 20 ml ONCE PRN 10/15/24 07:00 Oxytocin 1,000 ml @ 6 ml/hr Q24H 10/15/24 07:00 10/15/24 17:50 3 ML/HR Terbutaline Sulfate (Brethine Inj) 0.25 mg ONCE PRN 10/15/24 07:00 Oxytocin 500 ml @ 999 mls/hr Q31M ONCE 10/15/24 07:00 10/15/24 08:19 DC Oxytocin 500 ml @ 125 mls/hr Q4H ONCE 10/15/24 07:30 10/15/24 11:29 DC Albuterol (Ventolin Medneb) 2.5 mg Q4HP PRN 10/15/24 08:30 Laboratory Tests Test 10/15/24 18:48 10/15/24 07:08 10/15/24 06:50 Range/Units POC Glucose 94 70-106 mg/dl White Blood Count 9.0 4.4-10.8 10^3/uL Red Blood Count 4.50 4.0-5.20 10^6/uL Hemoglobin 11.4 L 12.2-16.2 g/dL Hematocrit 35.5 L 36.0-46.0 % Mean Corpuscular Volume 78.7 L 80.0-100.0 fL Mean Corpuscular Hemoglobin 25.3 L 28.0-32.0 pg Mean Corpuscular Hemoglobin Concent 32.1 32.0-36.0 g/dL Red Cell Distribution Width 15.6 H 11.8-14.3 % Platelet Count 272 140-450 10^3/uL Mean Platelet Volume 8.9 6.9-10.8 fL Neutrophils (%) (Auto) 67.6 37.0-80.0 % Lymphocytes (%) (Auto) 22.6 10.0-50.0 % Monocytes (%) (Auto) 6.6 0.0-12.0 % Eosinophils (%) (Auto) 3.0 0.0-7.0 % Basophils (%) (Auto) 0.2 0.0-2.0 % Neutrophils # (Auto) 6.1 1.6-8.6 10 ^3/uL Lymphocytes # (Auto) 2.0 0.4-5.4 10 ^3/uL Monocytes # (Auto) 0.6 0-1.3 10 ^3/uL Eosinophils # (Auto) 0.3 0-0.8 10 ^3/uL Basophils # (Auto) 0 0-0.2 10 ^3/uL Nucleated Red Blood Cells 0.1 % Prothrombin Time 9.8 9.3-11.8 sec Prothrombin Time INR 0.92 0.9-1.15 Activated Partial Thromboplast Time < 20.0 L 24.5-34.5 SEC Sodium Level 138 136-145 mmol/L Potassium Level 4.0 3.5-5.1 mmol/L Chloride Level 104 98-107 mmol/L Carbon Dioxide Level 24 20-31 mmol/L Anion Gap 10 5-15 Blood Urea Nitrogen < 5 L 9-23 mg/dL Creatinine 0.70 0.550-1.02 mg/dL Glomerular Filtration Rate Calc 115 >90 mL/min BUN/Creatinine Ratio 7.1 L 10.0-20.0 Serum Glucose 136 H 74-106 mg/dL Calcium Level 9.6 8.7-10.4 mg/dL Total Bilirubin 0.3 0.2-1.0 mg/dL Aspartate Amino Transferase (AST) 28 13-40 U/L Alanine Aminotransferase (ALT) 58 H 7-40 U/L Alkaline Phosphatase 181 H 46-116 U/L Total Protein 6.3 5.7-8.2 g/dL Albumin 4.1 3.2-4.8 g/dL Rapid Plasma Reagin Pending Treponema pallidum Ab (TP-PA) Pending Hepatitis C Antibody Negative Negative Urine Color Yellow Yellow Urine Clarity Turbid H Clear Urine pH 6.5 5.0-9.0 Urine Specific [place] 1.014 1.001-1.035 Urine Protein Negative Negative Urine Ketones Negative Negative Urine Blood Negative Negative /uL Urine Nitrite Negative Negative Urine Bilirubin Negative Negative Urine Urobilinogen Normal Negative mg/dL Urine Leukocyte Esterase 3+ Negative /uL Urine RBC 5 0 - 4 /hpf Urine Microscopic WBC 7 H 0-5 /HPF Urine Squamous Epithelial Cells Mod <5 /hpf Urine Bacteria Few H None Seen /hpf Urine Glucose Normal Normal mg/dL Urine Opiates Screen Neg NEGATIVE Urine Fentanyl Screen Neg NEGATIVE Urine Barbiturates Screen Neg NEGATIVE Urine Phencyclidine Screen Neg NEGATIVE Urine Amphetamines Screen Neg NEGATIVE Urine Benzodiazepines Screen Neg NEGATIVE Urine Cocaine Screen Neg NEGATIVE Urine Cannabinoids Screen Neg NEGATIVE Assessment Assessment 34yo IUP@39.6wks Induction of Labor for GDM,A2 Category I EFM Intact Membranes GBS negative Plan Plan Discussed starting pitocin with pt. Pt agrees with POC. Start IV pitocin per order monitoring per order Pain mgmt PRN Frequent position changes in and out of bed encouraged Limit SVE unless necessary Intrauterine resuscitation PRN Anticipate CNM co-managing with Dr. Myers Plan discussed with: Patient, Other (family) Visit Coding OBGYN Date of Service: Oct 15, 2024 Billing Provider: LYNN BARR CNM OUTSIDE SALES ACCOUNT MANAGER Common Visit Codes: [id number] INP/OBS CARE(HIGH) LEONIE ALMONTE STUDENTMDW Oct 15, 2024 19:04
[2024-10-15] MEDS ORDERED: NALOXONE HCL 0.4 MG/ML VIAL IV ONE (20:15)
[2024-10-15] MEDS ORDERED: ePHEDrine SULFATE 50 MG/ML AMP IV ONE (20:15)
[2024-10-15] MEDS ORDERED: LIDOCAINE HCL 2 %PF INJ 10ML AMP IJ ONE (20:15)
[2024-10-15] MEDS ORDERED: ROPIVACAINE HCL 200 ML ONE (20:19)
[2024-10-15] MEDS: LACTATED RINGER'S 1,000 ML IV ONE (20:22)
[2024-10-15 21:40] VITALS: O2SAT 98
--- NOTE | 2024-10-15 22:55 | DVHPN2 ---
CNM Labor Progress Note Date and Time Seen Date Seen: Oct 15, 2024 Time Seen: 22:40 Subjective Subjective Comment Pt feels vaginal pressure. Epidural catheter in place, loading dose received by anesthesia. Pt feels a little pain relief. Objective Vital Signs VSS, mild hypotensive Monitoring Method Monitoring Method: External Heart Rate Heart Rate Baseline: 150 Heart Rate Variability: Moderate Presence of FHR Accelerations: Yes Presence of FHR Decelerations: Yes Heart Rate Type of Decel: Late Decelerations Changes in Trends of Patterns: Yes Comment on Trends or Patterns: maternal position changed, IV bolus given, O2 mask on Are all 5 Components of the FH: Yes Contractions Contractions Frequency: Other (q 3 min) Duration of Contraction: 60 Contractions Intensity: Moderate Contractions Resting Tone: Relaxed Membranes Membranes: Ruptured (SROM @1929) Amniotic Fluid Color: Clear Vaginal Exam Vag Exam Deferred: Yes Vaginal Exam Dilation: 4 Vaginal Exam Effacement: 80 Vaginal Exam Station: -3 Vaginal Exam Presentation: VTX Vaginal Exam Show: None Medications Medications - Pitocin: No (turned off due to patients pain and inabitity to continuously monitor) Medications - Pain Medications: PRN Medication - Epidural: Yes Medication - Other cytotec PO x2 given Lab Results Lab Results Vital Signs Date Time Temp Pulse Resp B/P (MAP) Pulse Ox O2 Delivery O2 Flow Rate FiO2 10/15/24 15:19 71 16 98 0.0 21 Current Medications Medications (Trade) Dose Ordered Sig/Darren Start Time Stop Time Status Last Admin Dose Admin Lactated Ringer's 1,000 ml @ 125 mls/hr Q8H 10/15/24 07:00 10/15/24 15:24 125 MLS/HR Diagnostic Test (Pha) (Accu-Chek Comfort Curve T) 1 strip Q4HR 10/15/24 08:00 10/15/24 15:21 1 STRIP Witch Nalini (Tucks) 1 pad PRN PRN 10/15/24 07:00 10/15/24 09:22 1 PAD Sodium Lauryl Sulfate (Phisoderm) 240 ml PRN PRN 10/15/24 07:00 10/15/24 09:23 240 ML Benzocaine (Dermoplast) 1 applic PRN PRN 10/15/24 07:00 10/15/24 09:23 1 APPLIC Butorphanol Tartrate (Stadol Injection) 1 mg Q4HPRN PRN 10/15/24 07:00 Butorphanol Tartrate (Stadol Injection) 2 mg Q4HPRN PRN 10/15/24 07:00 Misoprostol (Cytotec) 50 mcg Q4HPRN PRN 10/15/24 07:00 10/15/24 13:38 50 MCG Lidocaine HCl (Xylocaine) 20 ml ONCE PRN 10/15/24 07:00 Oxytocin 1,000 ml @ 6 ml/hr Q24H 10/15/24 07:00 10/15/24 17:50 3 ML/HR Terbutaline Sulfate (Brethine Inj) 0.25 mg ONCE PRN 10/15/24 07:00 Oxytocin 500 ml @ 999 mls/hr Q31M ONCE 10/15/24 07:00 10/15/24 08:19 DC Oxytocin 500 ml @ 125 mls/hr Q4H ONCE 10/15/24 07:30 10/15/24 11:29 DC Albuterol (Ventolin Medneb) 2.5 mg Q4HP PRN 10/15/24 08:30 Naloxone HCl (Narcan) 0.2 mg PRN ONCE 10/15/24 20:15 10/15/24 20:21 DC Ephedrine Sulfate (ePHEDrine SULFATE) 10 mg PRN ONCE 10/15/24 20:15 10/15/24 20:21 DC Lidocaine HCl (Xylocaine-Pf 2% Injection) 10 ml ONCE ONCE 10/15/24 20:15 10/15/24 20:21 DC Lactated Ringer's 1,000 ml @ 1,000 mls/hr Q1H ONCE 10/15/24 20:15 10/15/24 21:14 DC 10/15/24 20:22 1,000 MLS/HR Laboratory Tests Test 10/15/24 18:48 10/15/24 07:08 10/15/24 06:50 Range/Units POC Glucose 94 70-106 mg/dl White Blood Count 9.0 4.4-10.8 10^3/uL Red Blood Count 4.50 4.0-5.20 10^6/uL Hemoglobin 11.4 L 12.2-16.2 g/dL Hematocrit 35.5 L 36.0-46.0 % Mean Corpuscular Volume 78.7 L 80.0-100.0 fL Mean Corpuscular Hemoglobin 25.3 L 28.0-32.0 pg Mean Corpuscular Hemoglobin Concent 32.1 32.0-36.0 g/dL Red Cell Distribution Width 15.6 H 11.8-14.3 % Platelet Count 272 140-450 10^3/uL Mean Platelet Volume 8.9 6.9-10.8 fL Neutrophils (%) (Auto) 67.6 37.0-80.0 % Lymphocytes (%) (Auto) 22.6 10.0-50.0 % Monocytes (%) (Auto) 6.6 0.0-12.0 % Eosinophils (%) (Auto) 3.0 0.0-7.0 % Basophils (%) (Auto) 0.2 0.0-2.0 % Neutrophils # (Auto) 6.1 1.6-8.6 10 ^3/uL Lymphocytes # (Auto) 2.0 0.4-5.4 10 ^3/uL Monocytes # (Auto) 0.6 0-1.3 10 ^3/uL Eosinophils # (Auto) 0.3 0-0.8 10 ^3/uL Basophils # (Auto) 0 0-0.2 10 ^3/uL Nucleated Red Blood Cells 0.1 % Prothrombin Time 9.8 9.3-11.8 sec Prothrombin Time INR 0.92 0.9-1.15 Activated Partial Thromboplast Time < 20.0 L 24.5-34.5 SEC Sodium Level 138 136-145 mmol/L Potassium Level 4.0 3.5-5.1 mmol/L Chloride Level 104 98-107 mmol/L Carbon Dioxide Level 24 20-31 mmol/L Anion Gap 10 5-15 Blood Urea Nitrogen < 5 L 9-23 mg/dL Creatinine 0.70 0.550-1.02 mg/dL Glomerular Filtration Rate Calc 115 >90 mL/min BUN/Creatinine Ratio 7.1 L 10.0-20.0 Serum Glucose 136 H 74-106 mg/dL Calcium Level 9.6 8.7-10.4 mg/dL Total Bilirubin 0.3 0.2-1.0 mg/dL Aspartate Amino Transferase (AST) 28 13-40 U/L Alanine Aminotransferase (ALT) 58 H 7-40 U/L Alkaline Phosphatase 181 H 46-116 U/L Total Protein 6.3 5.7-8.2 g/dL Albumin 4.1 3.2-4.8 g/dL Rapid Plasma Reagin Pending Treponema pallidum Ab (TP-PA) Pending Hepatitis C Antibody Negative Negative Urine Color Yellow Yellow Urine Clarity Turbid H Clear Urine pH 6.5 5.0-9.0 Urine Specific [place] 1.014 1.001-1.035 Urine Protein Negative Negative Urine Ketones Negative Negative Urine Blood Negative Negative /uL Urine Nitrite Negative Negative Urine Bilirubin Negative Negative Urine Urobilinogen Normal Negative mg/dL Urine Leukocyte Esterase 3+ Negative /uL Urine RBC 5 0 - 4 /hpf Urine Microscopic WBC 7 H 0-5 /HPF Urine Squamous Epithelial Cells Mod <5 /hpf Urine Bacteria Few H None Seen /hpf Urine Glucose Normal Normal mg/dL Urine Opiates Screen Neg NEGATIVE Urine Fentanyl Screen Neg NEGATIVE Urine Barbiturates Screen Neg NEGATIVE Urine Phencyclidine Screen Neg NEGATIVE Urine Amphetamines Screen Neg NEGATIVE Urine Benzodiazepines Screen Neg NEGATIVE Urine Cocaine Screen Neg NEGATIVE Urine Cannabinoids Screen Neg NEGATIVE Assessment Assessment 34yo IUP@39.6wks Induction of Labor for GDM,A2 Category II EFM SROM, clear GBS negative Plan Plan Restart IV pitocin per order when Category I EFM monitoring per order Pt has epidural catheter placed but still feeling pain since anesthesia had to leave for an emergent OR case. Anesthesia will be back to set up PCEA. Frequent position changes in bed encouraged Limit SVE unless necessary Intrauterine resuscitation PRN Anticipate CNM co-managing with Dr. Myers Plan discussed with: Patient, Other (Family) Visit Coding OBGYN Date of Service: Oct 15, 2024 Billing Provider: LYNN BARR CNM PERSONALIZED LIVING MANAGER Common Visit Codes: [id number] INP/OBS CARE(HIGH) LEONIE ALMONTE STUDENTMDW Oct 15, 2024 22:55
[2024-10-16] VITALS (7 sets, daily range): BP systolic 104–120; BP diastolic 64–75; PULSE 71–88; RESP 14–20; TEMP 97.6–98.7; O2SAT 96–98
[2024-10-16] MEDS: LACT. RINGERS/OXYTOCIN 20UNITS 500 ML IV ONE ×2 (03:04→03:05)
--- NOTE | 2024-10-16 03:41 | LDN2 ---
Labor and Delivery Note Date 10/16/24 Age 34 3 Para now, 2 AB 1 EDC 10/16/2024 EGA 40.0wks Diagnosis Induction of labor for GDM,A2 then Vaginal Delivery: VTX Vacuum Assisted: No Placenta: Spontaneous Sex: Female Weight pending Apgars 8/9 Nuchal Cord Transected: No Amniotic Fluid: Clear Anesthesia epidural Episiotomy: No Extension: No Repaired with 3-0 vicryl EBL QBL 150mL Labs Laboratory Tests 03/25/24 09:19: Hepatitis B Surface Antigen Negative, HIV (1&2) Antibody Negative, Rubella Antibody Positive Blood Bank 10/15/24 07:08: Blood Type B POSITIVE Complications none Conditions stable Operating Systems Specialist Somu Comments/Significant Med Hiram At 0227 this 34yo now delivered a viable Female infant by w/ APGARS 8/9. CLAUDY presentation. RT at bedside during delivery. placed skin to skin on pts chest. Cord clamped and cut after pulsation ceased. Intact 3-vessel cord placenta delivered spontaneously, [place] guerrero cord insertion. Pitocin IV bolus started. Placenta sent to pathology. Patient had epidural. Cervix/vagina inspected (intact) and first degree perineal laceration present which was repaired with 3-0 vicryl suture. Fundus at U, firm, midline, and light lochia. QBL 150ml. VSS. Count correct x2. Patient to care and baby to couplet care, both stable. Visit Coding OBGYN Date of Service: Oct 16, 2024 Billing Provider: LYNN BARR CNM DETACHER Common Visit Codes: [id number] INP/OBS CARE(HIGH) DETACHER Procedure Codes: [id number] DEL INCLUDING LEONIE ALMONTE STUDENTMDW Oct 16, 2024 03:41
[2024-10-16] MEDS ORDERED: ONDANSETRON ODT 4 MG TAB PO PRN (06:45)
[2024-10-16 07:07] LABS: RPR Non Reactive (Non Reactive)
[2024-10-16] MEDS: IBUPROFEN 600 MG TAB PO PRN (07:29)
[2024-10-16] MEDS ORDERED: IBU600T PO (22:43)
[2024-10-16] MEDS ORDERED: DOCU-94 PO (22:43)
--- NOTE | 2024-10-17 00:36 | DVHPN2 ---
Progress Note Date Seen: Oct 17, 2024 Subjective S: bleeding is less, eating food without issues, denies lightheaded/dizziness, pain well controlled with oral medications, no concerns with urinating, passing flatus, no BM yet, ambulating well, formula feeding vital signs Vital Sign Date Time Temp Pulse Resp B/P (MAP) Pulse Ox O2 Delivery O2 Flow Rate FiO2 10/16/24 22:57 97.6 79 14 109/70 (83) 96 97.6 10/16/24 18:44 Room Air 10/16/24 07:40 0 21 21 Total Intake and Output 10/16/24 10/16/24 10/17/24 15:00 23:00 07:00 Output Total 2500 ml Balance -2500 ml medications Current Medications Medications Dose Ordered Sig/Darren Route Start Time Stop Time Status Last Admin Dose Admin [place] 1 pad PRN PRN TOP 10/15/24 07:00 10/15/24 09:22 1 PAD Sodium Lauryl Sulfate 240 ml PRN PRN TOP 10/15/24 07:00 10/15/24 09:23 240 ML Benzocaine 1 applic PRN PRN TOP 10/15/24 07:00 10/15/24 09:23 1 APPLIC Albuterol 90 mcg TID IN 10/15/24 14:00 Cancel Albuterol 2.5 mg Q4HP PRN NEB 10/15/24 08:30 Ibuprofen 600 mg Q6HP PRN PO 10/16/24 06:45 10/16/24 17:35 600 MG Acetaminophen 650 mg Q4HP PRN PO 10/16/24 06:45 Ondansetron HCl 4 mg Q4HPRN PRN PO 10/16/24 06:45 laboratory and microbiology Laboratory Tests 10/15/24 07:08 Test 10/15/24 07:08 Range/Units Serum Glucose 136 H 74-106 mg/dL Objective O: VSS Chest: heart sounds normal and lung sounds clear bilaterally Abd: soft, non-tender, fundus at U/firm/midline, active bowel sounds, no rebound or guarding Perineum: sutures intact, edges well approximated, no erythema/edema noted Ext: Non-tender, No edema, 2+ BLE DTRs Lochia: minimal See lab results Problems(with codes): (1) (normal spontaneous vaginal delivery) (2) First degree perineal laceration during delivery Assessment/Plan A: 34yo now PPD#1 s/p Rh+ Rubella Immune Formula feeding P: D/C home today Rx sent to pharmacy precautions and preeclampsia warning signs reviewed F/U with [facility] office in 2 weeks Plan discussed with: Patient, Other (Family) Visit Coding OBGYN Date of Service: Oct 17, 2024 Billing Provider: LYNN BARR CNM DROP WIRE ALINER Common Visit Codes: [id number] INP/OBS CARE(HIGH) LYNN BARR CNM Oct 17, 2024 00:36
--- NOTE | 2024-10-17 00:36 | DVHDS2 ---
Obstetrics Discharge Summary Obstetrics Discharge Summary Date of Admission: Oct 15, 2024 Date of Discharge: Oct 17, 2024 Reason For Admission: Induction of Labor (GDM, A2) Procedures: NST, Ultrasound, Mgmt of Obstetrics Compli (GDM, A2) Intrapartum Procedures: Spontaneous vaginal deliv Procedures: Hct/date: (10/17/24), Hgb/date: (10/17/24) Operative Complicat: Laceration (first degree Perineal) Discharge Diagnosis: Term -Delivered Discharge Information: Activity (as tolerated, no heavy lifting and nothing in the vagina for 6 weeks), Diet (Routine), Medications (Rx sent), Instructions (Routine), Discharge to (Home), Accompanied by (partner), Discarge date (10/17/24) Visit Coding OBGYN Date of Service: Oct 17, 2024 Billing Provider: LYNN BARR CNM SENIOR PRODUCT DEVELOPMENT MANAGER Common Visit Codes: [id number] DISCH DAY <30MIN LYNN BARR CNM Oct 17, 2024 00:36
[2024-10-17] MEDS: DOCUSATE SOD 100 MG CAP PO ONE (01:38)
[2024-10-17 02:48] VITALS: PULSE 143; RESP 40; TEMP 98.3; O2SAT 96
[2024-10-17 02:56] VITALS: PULSE 74; RESP 18; TEMP 98.3; O2SAT 98
[2024-10-17 06:45] VITALS: BP 110/77; PULSE 81; RESP 18; TEMP 97.9; O2SAT 97
[2024-10-17] MEDS: ACETAMINOPHEN 325 MG TAB PO PRN (06:53)
[2024-10-17 08:10] VITALS: O2SAT 96
[2024-10-17 08:33] LABS: Basophils # (auto) 0 10 ^3/uL (0-0.2); Monocytes # (auto) 0.6 10 ^3/uL (0-1.3)
[2024-10-17 08:35] LABS: Basophils % (auto) 0.5 % (0.0-2.0); Eosinophils # (auto) 0.4 10 ^3/uL (0-0.8); Eosinophils % (auto) 4.7 % (0.0-7.0); Hematocrit 29.2 % (36.0-46.0); Hemoglobin 9.4 g/dL (12.2-16.2); Lymphocytes # (auto) 1.9 10 ^3/uL (0.4-5.4); Lymphocytes % (auto) 23.8 % (10.0-50.0); Mean Corpuscular Hemoglobin 25.3 pg (28.0-32.0); Mean Corpuscular Volume 78.9 fL (80.0-100.0); Monocytes % (auto) 7.5 % (0.0-12.0); Neutrophils # (auto) 5.1 10 ^3/uL (1.6-8.6); Neutrophils % (auto) 63.5 % (37.0-80.0); Platelet Count (auto) 235 10^3/uL (140-450); Red Cell Distribution Width 15.1 % (11.8-14.3)
[2024-10-17] MEDS ORDERED: FER325T PO (10:35)
[2024-10-18 12:07] LABS: Treponema Pallidum Ab LC Non Reactive (Non Reactive)
== END 2024-10-17 12:20 | disposition home or self-care (01) | DRG 807 ==
LOC: LDRP 06:40
PROVIDERS: ADMIT Obstetrics & Gynecology; ATTEND Obstetrics & Gynecology
PROC: 10E0XZZ Delivery of Products of Conception, External Approach (ICD-10-PCS; principal; 2024-10-16)
PROC: 3E0DXGC Introduction of Other Therapeutic Substance into Mouth and Pharynx, External Approach (ICD-10-PCS; 2024-10-16)
PROC: 0HQ9XZZ Repair Perineum Skin, External Approach (ICD-10-PCS; 2024-10-16)
PROC: 3E0R3BZ Introduction of Anesthetic Agent into Spinal Canal, Percutaneous Approach (ICD-10-PCS; 2024-10-16)
PROC: 00HU33Z Insertion of Infusion Device into Spinal Canal, Percutaneous Approach (ICD-10-PCS; 2024-10-16)
DX: O24.425 Gestational diabetes mellitus in childbirth, controlled by oral hypoglycemic drugs (principal); Z37.0 Single live birth; O70.0 First degree perineal laceration during delivery; O99.52 Diseases of the respiratory system complicating childbirth; J45.909 Unspecified asthma, uncomplicated; Z3A.39 39 weeks gestation of pregnancy
CPT/HCPCS: 36415; 59409; 62282; 76805; 80053; 80307; 81001; 81002; 82948; 82962; 85025; 85610; 85730; 86592; 86780; 86803; 86850; 86870; 86900; 86901; 94760; 94762; 96361; 96365; 96366; G0378; J2590

== ENCOUNTER 2024-11-06 10:49 | Emergency (ER) | payer BC ==
[~2024-11-06] VITALS: Ht 167.6 cm; Wt 103.7 kg
[~2024-11-06 10:49] MED LIST changes: +DOCU-94 PO; +FER325T PO; -GLYB2.5T8 PO; +IBU600T PO; -METF-370 PO
--- NOTE | 2024-11-06 11:21 | ED.PDOC ---
History of Present Illness HPI Comments 34-year-old female with PMHx Asthma presents with a chief complaint of abdominal pain x onset Monday evening with associated diarrhea. Patient states that her pain is localized to her RUQ, nonradiating, describes as sharp/stabbing, and rates her pain a 8/10. Patient denies the pain gets worse after eating. Patient does mention that she recently gave on 10/16/2024. Patient denies any nausea or vomiting or rectal bleeding. No other symptoms or modifying factors present at this time. Chief Complaint: Abdominal Pain Time Seen by MD: 11:11 Reviewed Notes: Medications, Allergies Allergies: Coded Allergies: NO KNOWN ALLERGIES (Unverified , 03/15/22) Home Meds Active Scripts Ferrous Sulfate (FERROUS SULFATE) 325 Mg Tb, 1 TAB PO DAILY, #30 TAB 2 Refills Prov:LYNN BARR CNM 10/17/24 Docusate Sodium (Colace) 100 Mg Cap, 1 CAP PO BID PRN, #60 CAP 2 Refills Prov:DENISDJOESPH LINHI CNM 10/16/24 Ibuprofen Micronized (MOTRIN TABLET) 600 Mg Tb, 600 MG PO Q6HP PRN for 20 Days, #80 TAB Prov:KALAYDJIANAZADUHI CNM 10/16/24 Fluocinonide (Fluocinonide) 0.05 % Oin, 1 APPLIC TOP BID for 7 Days, #60 GRAMS 1 Refill Prov:PRADIP GARCÍA BANQUET SUPERVISOR 06/04/24 Reported Medications Cetirizine Hcl (Zyrtec Allergy) 10 Mg Cap, 10 MG PO, CAP 04/29/22 Fluticasone-Salmeterol (Advair Diskus 250/50) 1 Puff Ih, 1 PUFF INH BID, #3 INHALER 3 Refills 04/08/22 Vit W/ Ferrous Fumara ( One Daily) Daily Tab, 1 TAB PO DAILY, #30 TAB 11 Refills 02/25/22 Information Source: Patient Mode of Arrival: Ambulatory Severity: Moderate Timing: Days Duration: Since onset Prehospital treatment: None Past Medical History PAST MEDICAL HISTORY: Denies Surgical History: Denies all surgeries PHOTOGRAPHER'S MODEL History: No Pertinent PHOTOGRAPHER'S MODEL History Social History Smoker: Non-Smoker Alcohol: Denies ETOH Use Drugs: Denies Drug Use Lives In: Home Constitutional: denies: chills, diaphoresis, fatigue, fever, malaise, sweats, weakness, others EENTM: denies: blurred vision, double vision, ear bleeding, ear discharge, ear drainage, ear pain, ear ringing, eye pain, eye redness, hearing loss, mouth pain, mouth swelling, nasal discharge, nose bleeding, nose congestion, nose pain, photophobia, tearing, throat pain, throat swelling, voice changes, others Respiratory: denies: cough, hemoptysis, orthopnea, SOB at rest, shortness of breath, SOB with excertion, stridor, wheezing, others Cardiovascular: denies: chest pain, dizzy spells, diaphoresis, Dyspnea on exertion, edema, irregular heart beat, left arm pain, lightheadedness, palpitations, PND, syncope, others Gastrointestinal: reports: abdominal pain, diarrhea; denies: abdomen distended, blood streaked bowels, constipated, dysphagia, difficulty swallowing, hematemesis, melena, nausea, poor appetite, poor fluid intake, rectal bleeding, rectal pain, vomiting, others Genitourinary: denies: abnormal vagina bleeding, burning, dyspareunia, dysuria, flank pain, frequency, hematuria, incontinence, pain, , vagina discharge, urgency, others Neurological: denies: dizziness, fainting, headache, left sided numbness, left sided weakness, numbness, paresthesia, pre-existing deficit, right sided numbness, right sided weakness, seizure, speech problems, tingling, tremors, weakness, others Musculoskeletal: denies: back pain, gout, joint pain, joint swelling, muscle pain, muscle stiffness, neck pain, others Integumetry: denies: bruises, change in color, change in hair/nails, dryness, laceration, lesions, lumps, rash, wounds, others Allergic/Immunocompromised: denies: Difficulty Healing, Frequent Infections, Hives, Itching, others Hematologic/Lymphatic: denies: anemia, blood clots, easy bleeding, easy bruising, swollen glands, others Endocrine: denies: excessive hunger, excessive sweating, excessive thirst, excessive urination, flushing, intolerance to cold, intolerance to heat, unexplained weight gain, unexplained weight loss, others Psychiatric: denies: anxiety, bipolar disorder, depression, hopeless, panic disorder, schizophrenia, sleepless, suicidal, others All Other Systems: Reviewed and Negative Physical Exam General Appearance: No Apparent Distress, Normal HEENT: Normal ENT Inspection, Pharynx Normal, TMs Normal Neck: Full Range of Motion, Non-Tender, Normal, Normal Inspection Respiratory: Chest Non-Tender, Lungs Clear, No Accessory Muscle Use, No Respiratory Distress, Normal Breath Sounds Cardiovascular: No Edema, No JVD, No Murmur, No Gallop, Normal Peripheral Pulses, Regular Rate/Rhythm Breast Exam: Deferred Gastrointestinal: No Organomegaly, Non Tender, No Pulsatile Mass, Normal Bowel Sounds, Soft Genitalia: Deferred Pelvic: Deferred Rectal: Deferred Extremities: No calf tenderness, Normal capillary refill, Normal inspection, Normal range of motion, Non-tender, No pedal edema Musculoskeletal : Apperance: Normal Neurologic: Alert, board design engineer II-XII nml as Tested, No Motor Deficits, Normal Affect, Normal Mood, No Sensory Deficits Cerebellar Function: Normal Reflexes: Normal Skin: Dry, Normal Color, Warm Lymphatic: No Adenopathy Was a procedure done? Was a procedure done?: No Differential Dx Considerations may include: Cholelithiasis, cholecystitis, acute cystitis, pyelonephritis, gastroenteritis X-Ray, Labs, Meds, VS Vital Signs Date Time Temp Pulse Resp B/P (MAP) Pulse Ox O2 Delivery O2 Flow Rate FiO2 11/06/24 12:07 78 16 96 Room Air* 0 21 11/06/24 12:03 98.6 78 16 149/72 (97) 96 98.6 11/06/24 11:08 98.9 92 16 117/52 (73) 96 Lab Test 11/06/24 11:47 11/06/24 11:20 Range/Units White Blood Count 6.4 4.4-10.8 10^3/uL Red Blood Count 5.04 4.0-5.20 10^6/uL Hemoglobin 12.8 12.2-16.2 g/dL Hematocrit 40.1 36.0-46.0 % Mean Corpuscular Volume 79.4 L 80.0-100.0 fL Mean Corpuscular Hemoglobin 25.4 L 28.0-32.0 pg Mean Corpuscular Hemoglobin Concent 31.9 L 32.0-36.0 g/dL Red Cell Distribution Width 16.1 H 11.8-14.3 % Platelet Count 322 140-450 10^3/uL Mean Platelet Volume 8.7 6.9-10.8 fL Neutrophils (%) (Auto) 56.8 37.0-80.0 % Lymphocytes (%) (Auto) 32.1 10.0-50.0 % Monocytes (%) (Auto) 5.0 0.0-12.0 % Eosinophils (%) (Auto) 5.2 0.0-7.0 % Basophils (%) (Auto) 0.9 0.0-2.0 % Neutrophils # (Auto) 3.6 1.6-8.6 10 ^3/uL Lymphocytes # (Auto) 2.1 0.4-5.4 10 ^3/uL Monocytes # (Auto) 0.3 0-1.3 10 ^3/uL Eosinophils # (Auto) 0.3 0-0.8 10 ^3/uL Basophils # (Auto) 0.1 0-0.2 10 ^3/uL Nucleated Red Blood Cells 0.1 % Sodium Level 139 136-145 mmol/L Potassium Level 4.1 3.5-5.1 mmol/L Chloride Level 108 H 98-107 mmol/L Carbon Dioxide Level 24 20-31 mmol/L Anion Gap 7 5-15 Blood Urea Nitrogen 8 L 9-23 mg/dL Creatinine 0.73 0.550-1.02 mg/dL Glomerular Filtration Rate Calc 109 >90 mL/min BUN/Creatinine Ratio 11.0 10.0-20.0 Serum Glucose 100 74-106 mg/dL Calcium Level 9.5 8.7-10.4 mg/dL Total Bilirubin 0.4 0.2-1.0 mg/dL Aspartate Amino Transferase (AST) 20 13-40 U/L Alanine Aminotransferase (ALT) 27 7-40 U/L Alkaline Phosphatase 95 46-116 U/L Total Protein 6.9 5.7-8.2 g/dL Albumin 4.5 3.2-4.8 g/dL Lipase 46 12-53 U/L Urine Color Colorless Yellow Urine Clarity Clear Clear Urine pH 7.0 5.0-9.0 Urine Specific [place] 1.005 1.001-1.035 Urine Protein Negative Negative Urine Ketones Negative Negative Urine Blood 2+ H Negative /uL Urine Nitrite Negative Negative Urine Bilirubin Negative Negative Urine Urobilinogen Normal Negative mg/dL Urine Leukocyte Esterase 3+ Negative /uL Urine RBC 1 0 - 4 /hpf Urine Microscopic WBC 15 H 0-5 /HPF Urine Squamous Epithelial Cells Few <5 /hpf Urine Bacteria Few H None Seen /hpf Urine Glucose Normal Normal mg/dL Time of 1ST Reevaluation: 11:41 Reevaluation 1ST: Unchanged Patient Education/Counseling: Diagnosis, Treatment, Prognosis Family Education/Counseling: Diagnosis, Treatment, Prognosis Departure 1 Departure Time of Disposition: 13:01 (Patient presented with abdominal pain that was concerning for possible appendicits, gastritis, cholecystitis, colitis, gastroenteritis, or orther possible surgical emergency. Data: 1. I ordered and reviewed the result of at least 3 labs including a CBC, BMP, and Urinalysis. 2. I independently interpreted the following tests: Gallbladder ultrasound which is benign.Risk:This patient has a high risk of morbidity due to further diagnostic testing or treatment and may suffer from an acute abdominal process disorder. Fortunately workup reveals acute cystitis and patient can be safely discharged to home with outpatient follow up.) Impression: Primary Impression: Acute cystitis Qualified Codes: N30.01 - Acute cystitis with hematuria Disposition: ADMITTED INPATIENT Admit to: Med Surg Condition: Serious Additional Instructions: You have a urinary tract infection. Your labs and ultrasound were otherwise negative. You were prescribed antibiotics. Please take as directed. You can take Tylenol Motrin as needed for pain. It is important that he follow up with the regular doctor within 1 week to ensure you are doing better. If your symptoms worsen or you have any other concerns then please return to the emergency room. e-Prescriptions Cefdinir (Cefdinir) 300 Mg Cap 1 CAP PO BID for 7 Days, #14 CAP Prov: LEEANNE EDMONDS MD 11/06/24 Discharged With: Self Critical Care Note Critical Care Time?: No Stability Stability form required: No Heart Score Heart Score: Heart Score Response (Comments) Value History N/A 0 EKG N/A 0 Age N/A 0 Risk Factors N/A 0 Troponin N/A 0 Total 0 I personally scribed for LEEANNE EDMONDS MD ([email or web address]) on 11/06/24 at 11:21. Electronically submitted by Lenard Angeles ([email or web address]). LEEANNE EDMONDS MD Nov 06, 2024 11:21
--- NOTE | 2024-11-06 12:02 | DVH ---
INDICATION: ruq pain TECHNIQUE: Multiple real-time sonographic images were obtained of the right upper quadrant. COMPARISON: None FINDINGS: The liver demonstrates increased echotexture without focal mass lesions. The liver measures 17 cm. There is no intrahepatic or extrahepatic ductal dilatation. The common duct measures 4 mm. The gallbladder is without evidence of stone or sludge. The gallbladder wall measures 2 mm and is wi thin normal limits. The right kidney measures 9.7 cm. The right kidney is normal in contour, size, and shape. The echoge nicity is normal. There is no hydronephrosis. The pancreas is not well visualized due to overlying bowel gas. IMPRESSION: No sonographic evidence of gallstones or acute cholecystitis. Hepatic steatosis.
[2024-11-06 12:07] VITALS: PULSE 78; RESP 16; O2SAT 96
[2024-11-06 12:16] LABS: Eosinophils # (auto) 0.3 10 ^3/uL (0-0.8); Lymphocytes # (auto) 2.1 10 ^3/uL (0.4-5.4); Monocytes # (auto) 0.3 10 ^3/uL (0-1.3); Platelet Count (auto) 322 10^3/uL (140-450)
[2024-11-06 12:19] LABS: Basophils # (auto) 0.1 10 ^3/uL (0-0.2); Basophils % (auto) 0.9 % (0.0-2.0); Eosinophils % (auto) 5.2 % (0.0-7.0); Hematocrit 40.1 % (36.0-46.0); Hemoglobin 12.8 g/dL (12.2-16.2); Lymphocytes % (auto) 32.1 % (10.0-50.0); Mean Corpuscular Hemoglobin 25.4 pg (28.0-32.0); Mean Corpuscular Hgb Conc. 31.9 g/dL (32.0-36.0); Mean Corpuscular Volume 79.4 fL (80.0-100.0); Neutrophils # (auto) 3.6 10 ^3/uL (1.6-8.6); Neutrophils % (auto) 56.8 % (37.0-80.0); Nucleated Red Blood Cells % 0.1 %; Red Blood Cells 5.04 10^6/uL (4.0-5.20); Red Cell Distribution Width 16.1 % (11.8-14.3); White Blood Cell 6.4 10^3/uL (4.4-10.8)
[2024-11-06 12:36] LABS: Urine Bacteria FEW /hpf (None Seen); Urine Blood 2+ /uL (Negative); Urine Clarity Clear (Clear); Urine Color Colorless (Yellow); Urine Protein, UAD Negative (Negative); Urine Specific Gravity 1.005 (1.001-1.035); Urine Squamous Epithelial Cell FEW /hpf (<5); Urine Urobilinogen Normal (Negative); Urine WBC 15 /HPF (0-5)
[2024-11-06 12:41] LABS: Alanine Aminotransferase 27 U/L (7-40); Albumin 4.5 g/dL (3.2-4.8); Alkaline Phosphatase 95 U/L (46-116); Anion Gap 7 (5-15); Aspartate Aminotransferase 20 U/L (13-40); Calcium 9.5 mg/dL (8.7-10.4); Carbon Dioxide 24 mmol/L (20-31); Glucose 100 mg/dL (74-106); Lipase 46 U/L (12-53); Potassium 4.1 mmol/L (3.5-5.1); Sodium 139 mmol/L (136-145); Total Protein 6.9 g/dL (5.7-8.2)
[2024-11-06 12:42] LABS: Bilirubin, Total 0.4 mg/dL (0.2-1.0); Blood Urea Nitrogen 8 mg/dL (9-23); Chloride 108 mmol/L (98-107)
[2024-11-06] MEDS ORDERED: CEFD300C2 PO (13:03)
[2024-11-06 13:08] VITALS: BP 107/74; PULSE 104; RESP 18; TEMP 98.4; O2SAT 97
[2024-11-06] MEDS: cefTRIAXone W LIDOCAINE 1 GM IM IM ONE (13:32)
[2024-11-06] MEDS: LIDOCAINE 1% HCL (LOCAL ANESTH.) INJ 20ML MDV ONE (13:32)
[2024-11-06] MEDS: cefTRIAXone SOD 1,000 MG VL ONE (13:33)
== END 2024-11-06 13:35 | disposition home or self-care (01) ==
LOC: ER 10:49
DX: N30.01 Acute cystitis with hematuria (principal)
CPT/HCPCS: 36415; 76705; 80053; 81001; 83690; 85025; 96372; 99285; J0696; J2003